=== PATIENT | male | born 1965 | race Caucasian/White ===

== ENCOUNTER 2016-11-16 11:44 | Inpatient (IN) | payer OTHER ==
[2016-11-16 13:57] VITALS: BMI 29.2
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
[2016-11-16] MEDS ORDERED: MENTHOL/PHENOL 1 EACH UD MM PRN (15:26)
[2016-11-16] MEDS ORDERED: IBUPROFEN 400 MG TABLET (FP) PO PRN (15:26)
[2016-11-16] MEDS ORDERED: hydrOXYzine PAMOATE 25 MG CAPSULE (FP) PO PRN (15:26)
[2016-11-16] MEDS ORDERED: MAGNESIUM CITRATE 300 ML BOTTLE PO PRN (15:26)
[2016-11-16] MEDS ORDERED: MAG HYDROX/AL HYDROX/SIMETH 30 ML UNIT-DOSE CUP PO PRN (15:26)
[2016-11-16] MEDS ORDERED: diphenhydrAMINE HCL 50 MG CAPSULE PO PRN (15:26)
[2016-11-16] MEDS ORDERED: LOPERAMIDE HCL 2 MG CAPSULE PO PRN (15:26)
[2016-11-16] MEDS ORDERED: P-EPHED 60MG/TRIPROLIDI 2.5MG TABLET PO PRN (15:26)
[2016-11-16] MEDS ORDERED: ACETAMINOPHEN 325 MG TABLET (FP) PO PRN (15:26)
[2016-11-16] MEDS ORDERED: MAGNESIUM HYDROX 2400MG/30ML ORAL SUSPENSION 30 ML CUP PO PRN (15:26)
[2016-11-16] MEDS ORDERED: NICOTINE POLACRILEX 2 MG GUM BC PRN (15:26)
[2016-11-16] MEDS ORDERED: guaiFENesin/D-METHORPHAN HB 10 ML UNIT-DOSE CUPS PO PRN (15:26)
[2016-11-16] MEDS ORDERED: chlordiazePOXIDE HCL 25 MG CAPSULE PO PRN (15:26)
[2016-11-16] MEDS ORDERED: METOPROLOL SUCCINATE 25 MG TAB.SR.24H (FP) PO SCH (18:30)
[2016-11-16] MEDS ORDERED: chlordiazePOXIDE HCL 25 MG CAPSULE PO ONE (18:30)
[2016-11-16] MEDS ORDERED: LISINOPRIL 20 MG TABLET (FP) PO SCH (18:30)
[2016-11-16] MEDS ORDERED: NICOTINE 14 MG/24 HOURS TOPICAL PATCH TD SCH (18:30)
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
[2016-11-16 19:00] VITALS: BP 122/79; PULSE 106; TEMP 98.8
[2016-11-16] MEDS ORDERED: ZOLPIDEM TARTRATE 5 MG TABLET PO PRN (19:51)
--- NOTE | 2016-11-16 20:46 | DS ---
[facility] Detox Discharge Summary Admission Date: 11/16/16 Discharge Date: 11/16/16 - History Present History: Alcohol Dependence, Cannabis Dependence, Cocaine Dependence Additional Comments: received nurse reports that the patient is enjoying showing his sex organ to female staff, provocative language. Pertinent Past History: TYPE II DIABETES HYPERTENSION HYPERLIPIDEMIA - Physical Exam Results Vital Signs: Vital Signs Temperature 98.8 F 11/16/16 18:59 Pulse Rate 106 H 11/16/16 18:59 Respiratory Rate 20 11/16/16 18:59 Blood Pressure 122/79 11/16/16 18:59 O2 Sat by Pulse Oximetry (%) Pertinent Admission Physical Exam Findings: WITHDRAWAL SX LAB NOT AVAILABLE - Medication Discharge Medications: Ambulatory Orders Lisinopril [Prinivil -] 20 mg PO DAILY 09/10/15 Metoprolol Tartrate [Lopressor -] 25 mg PO DAILY 09/10/15 Sertraline HCl [Zoloft -] 50 mg PO DAILY 09/27/15 Metformin HCl [Glucophage -] 500 mg PO BID #60 tablet 10/01/15 - Diagnosis (1) Alcohol dependence with uncomplicated withdrawal Status: Acute (2) Nicotine dependence Status: Acute Qualifiers: Nicotine product type: cigarettes Substance use status: in withdrawal Qualified Code(s): F17.213 - Nicotine dependence, cigarettes, with withdrawal (3) Essential (primary) hypertension Status: Chronic (4) Hyperlipidemia Status: Chronic Qualifiers: Hyperlipidemia type: unspecified Qualified Code(s): E78.5 - Hyperlipidemia, unspecified (5) Type 2 diabetes mellitus Status: Chronic Qualifiers: Diabetes mellitus complication status: without complication Diabetes mellitus fpc insulin use: without terminal carman use Qualified Code(s): E11.9 - Type 2 diabetes mellitus without complications - AMA Did Patient Leave Against Medical Advice: No
[2016-11-16] MEDS ORDERED: THIAMINE HCL 100 MG TABLET (FP) PO SCH (22:00)
[2016-11-16] MEDS ORDERED: chlordiazePOXIDE HCL 25 MG CAPSULE PO SCH (23:00)
[2016-11-17] MEDS ORDERED: metFORMIN HCL 500 MG TABLET (FP) PO SCH (07:00)
[2016-11-17] MEDS ORDERED: PRENATAL VITAMINS W/ FOLIC ACID TABLET (FP) PO SCH (10:00)
--- NOTE | 2016-11-17 12:50 | EKG ---
Test Reason : Blood Pressure : / mmHG Vent. Rate : 101 BPM Atrial Rate : 101 BPM P-R Int : 164 ms QRS Dur : 104 ms QT Int : 390 ms P-R-T Axes : 070 036 063 degrees QTc Int : 505 ms SINUS TACHYCARDIA SEPTAL INFARCT , AGE UNDETERMINED ABNORMAL ECG NO PREVIOUS ECGS AVAILABLE Confirmed by WIL SANCHEZ MD ([id number]) on 11/17/2016 12:50:13 PM Referred By: Confirmed By:WIL SANCHEZ MD
[2016-11-17] MEDS ORDERED: chlordiazePOXIDE HCL 25 MG CAPSULE PO SCH (23:00)
[2016-11-18] MEDS ORDERED: chlordiazePOXIDE 5 MG CAPSULE PO SCH (23:00)
[2016-11-19] MEDS ORDERED: chlordiazePOXIDE HCL 10 MG CAPSULE PO SCH (23:00)
== END 2016-11-16 20:48 | disposition home or self-care (01) | DRG 774 ==
LOC: YASAS 11:44 → Y3N 17:55
PROVIDERS: ADMIT Internal Medicine Addiction Medicine; ATTEND Internal Medicine Addiction Medicine
PROC: HZ2ZZZZ Detoxification Services for Substance Abuse Treatment (ICD-10-PCS; principal; 2016-11-16)
DX: F10.230 Alcohol dependence with withdrawal, uncomplicated (principal); F14.20 Cocaine dependence, uncomplicated; F12.20 Cannabis dependence, uncomplicated; F17.213 Nicotine dependence, cigarettes, with withdrawal; F19.24 Other psychoactive substance dependence with psychoactive substance-induced mood disorder; F39 Unspecified mood [affective] disorder; I10 Essential (primary) hypertension; E78.5 Hyperlipidemia, unspecified; E11.9 Type 2 diabetes mellitus without complications; D50.9 Iron deficiency anemia, unspecified; G47.00 Insomnia, unspecified; G62.9 Polyneuropathy, unspecified; F03.90 Unspecified dementia, unspecified severity, without behavioral disturbance, psychotic disturbance, mood disturbance, and anxiety; Z86.69 Personal history of other diseases of the nervous system and sense organs; Z91.5 Personal history of self-harm
CPT/HCPCS: 93005; 93010

== ENCOUNTER 2017-12-16 11:51 | Inpatient (IN) | payer OTHER ==
[2017-12-16 12:40] VITALS: BMI 26.6
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
[2017-12-16] MEDS ORDERED: MENTHOL/PHENOL 1 EACH UD MM PRN (15:46)
[2017-12-16] MEDS ORDERED: P-EPHED 60MG/TRIPROLIDI 2.5MG TABLET PO PRN (15:46)
[2017-12-16] MEDS ORDERED: LOPERAMIDE HCL 2 MG CAPSULE PO PRN (15:46)
[2017-12-16] MEDS ORDERED: IBUPROFEN 400 MG TABLET (FP) PO PRN (15:46)
[2017-12-16] MEDS ORDERED: ACETAMINOPHEN 325 MG TABLET (FP) PO PRN (15:46)
[2017-12-16] MEDS ORDERED: hydrOXYzine PAMOATE 50 MG CAPSULE (FP) PO PRN (15:46)
[2017-12-16] MEDS ORDERED: MAGNESIUM HYDROX 2400MG/30ML ORAL SUSPENSION 30 ML CUP PO PRN (15:46)
[2017-12-16] MEDS ORDERED: MAG HYDROX/AL HYDROX/SIMETH 30 ML UNIT-DOSE CUP PO PRN (15:46)
[2017-12-16] MEDS ORDERED: MAGNESIUM CITRATE 300 ML BOTTLE PO PRN (15:46)
[2017-12-16] MEDS ORDERED: guaiFENesin/D-METHORPHAN HB 10 ML UNIT-DOSE CUPS PO PRN (15:46)
[2017-12-16] MEDS ORDERED: chlordiazePOXIDE HCL 25 MG CAPSULE PO PRN (15:46)
[2017-12-16] MEDS ORDERED: chlordiazePOXIDE HCL 25 MG CAPSULE PO ONE (16:30)
[2017-12-16 17:41] LABS: URINE APPEARANCE CLEAR; URINE BILIRUBIN NEGATIVE (<2.0 mg/dL); URINE COLOR LTYELLOW; URINE GLUCOSE (UA) NEGATIVE (NEGATIVE); URINE KETONE NEGATIVE (NEGATIVE); URINE LEUK ESTERASE NEGATIVE (NEGATIVE); URINE NITRITE NEGATIVE (NEGATIVE); URINE PROTEIN NEGATIVE (NEGATIVE); URINE UROBILINOGEN NEGATIVE mg/dL (0.2-1.0)
[2017-12-16] MEDS: metFORMIN HCL 500 MG TABLET (FP) PO SCH (17:44)
[2017-12-16] MEDS: chlordiazePOXIDE HCL 25 MG CAPSULE PO SCH ×2 (17:44→23:31)
[2017-12-16] MEDS ORDERED: MELATONIN 5 MG TABLETS PO PRN (22:00)
[2017-12-16] MEDS: THIAMINE HCL 100 MG TABLET (FP) PO SCH (22:55)
[2017-12-17] MEDS: chlordiazePOXIDE HCL 25 MG CAPSULE PO SCH ×4 (06:54→22:39)
[2017-12-17] MEDS: metFORMIN HCL 500 MG TABLET (FP) PO SCH ×2 (06:55→17:26)
[2017-12-17 09:59] LABS: HEMOGLOBIN 11.3 GM/dL (11.7-16.9); MCH 29.6 pg (25.7-33.7); MCHC 34.2 g/dl (32.0-35.9); MEAN CELL VOLUME 86.6 fl (80-96); MEAN PLT VOLUME 7.5 fl (7.5-11.1); PLATELET COUNT 151 K/MM3 (134-434); RBC 3.81 M/mm3 (4.00-5.60); RDW 16.8 % (11.9-15.9); WHITE BLOOD COUNT 4.1 K/mm3 (4.0-10.0)
[2017-12-17 10:10] LABS: CHLORIDE 104 mmol/L (98-107); POTASSIUM 3.4 mmol/L (3.5-5.1); SODIUM 139 mmol/L (136-145)
[2017-12-17 10:32] LABS: ALBUMIN 3.4 g/dl (3.4-5.0); ALK PHOS 90 U/L (45-117); ANION GAP 10 (8-16); BILIRUBIN,TOTAL 0.4 mg/dL (0.2-1.0); BLOOD UREA NITROGEN 7 mg/dL (7-18); CALCIUM 8.4 mg/dL (8.5-10.1); CO2 25 mmol/L (21-32); CREATININE 0.8 mg/dL (0.7-1.3); GLUCOSE,RANDOM 98 mg/dL (74-106); SGOT/AST 36 U/L (15-37); SGPT/ALT 25 U/L (12-78); TOT PROT 7.2 g/dl (6.4-8.2)
[2017-12-17] MEDS: PRENATAL VITAMINS W/ FOLIC ACID TABLET (FP) PO SCH (11:34)
[2017-12-17] MEDS: LISINOPRIL 20 MG TABLET (FP) PO SCH (11:34)
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
--- NOTE | 2017-12-17 13:28 | PN ---
S CIWA - CIWA Score Nausea/Vomitin-Mild Nausea/No Vomiting Muscle Tremors: 4-Moderate,w/Arms Extend Anxiety: 4-Mod. Anxious/Guarded Agitation: 4-Moderately Restless Paroxysmal Sweats: 1-Minimal Palms Moist Orientation: 0-Oriented Tacttile Disturbances: 1-Very Mild Itch/Numbness Auditory Disturbances: 0-None Visual Disturbances: 0-None Headache: 0-None Present CIWA-Ar Total Score: 15 BHS Progress Note (SOAP) Subjective: sweat tremor low energy trouble sleep at night Objective: 12/17/17 13:26 Vital Signs Temperature 97.7 F 12/17/17 09:54 Pulse Rate 94 H 12/17/17 11:30 Respiratory Rate 18 12/17/17 11:30 Blood Pressure 158/103 12/17/17 09:54 O2 Sat by Pulse Oximetry (%) Laboratory Last Values WBC 4.1 K/mm3 (4.0-10.0) 12/17/17 07:50 RBC 3.81 M/mm3 (4.00-5.60) L 12/17/17 07:50 Hgb 11.3 GM/dL (11.7-16.9) L 12/17/17 07:50 Hct 33.0 % (35.4-49) L 12/17/17 07:50 MCV 86.6 fl (80-96) 12/17/17 07:50 MCH 29.6 pg (25.7-33.7) 12/17/17 07:50 MCHC 34.2 g/dl (32.0-35.9) 12/17/17 07:50 RDW 16.8 % (11.9-15.9) H 12/17/17 07:50 Plt Count 151 K/MM3 (134-434) 12/17/17 07:50 MPV 7.5 fl (7.5-11.1) 12/17/17 07:50 Sodium 139 mmol/L (136-145) 12/17/17 07:50 Potassium 3.4 mmol/L (3.5-5.1) L 12/17/17 07:50 Chloride 104 mmol/L (98-107) 12/17/17 07:50 Carbon Dioxide 25 mmol/L (21-32) 12/17/17 07:50 Anion Gap 10 (8-16) 12/17/17 07:50 BUN 7 mg/dL (7-18) 12/17/17 07:50 Creatinine 0.8 mg/dL (0.7-1.3) 12/17/17 07:50 Creat Clearance w eGFR > 60 (>60) 12/17/17 07:50 POC Glucometer 107 UNITS (80-120) 12/17/17 06:01 Random Glucose 98 mg/dL (74-106) 12/17/17 07:50 Calcium 8.4 mg/dL (8.5-10.1) L 12/17/17 07:50 Total Bilirubin 0.4 mg/dL (0.2-1.0) D 12/17/17 07:50 AST 36 U/L (15-37) D 12/17/17 07:50 ALT 25 U/L (12-78) D 12/17/17 07:50 Alkaline Phosphatase 90 U/L (45-117) D 12/17/17 07:50 Total Protein 7.2 g/dl (6.4-8.2) 12/17/17 07:50 Albumin 3.4 g/dl (3.4-5.0) 12/17/17 07:50 Urine Color Ltyellow 12/16/17 Unknown Urine Appearance Clear 12/16/17 Unknown Urine pH 5.0 (5.0-8.0) 12/16/17 Unknown Ur Specific [place] 1.010 (1.001-1.035) 12/16/17 Unknown Urine Protein Negative (NEGATIVE) 12/16/17 Unknown Urine Glucose (UA) Negative (NEGATIVE) 12/16/17 Unknown Urine Ketones Negative (NEGATIVE) 12/16/17 Unknown Urine Blood Negative (NEGATIVE) 12/16/17 Unknown Urine Nitrite Negative (NEGATIVE) 12/16/17 Unknown Urine Bilirubin Negative (<2.0 mg/dL) 12/16/17 Unknown Urine Urobilinogen Negative mg/dL (0.2-1.0) 12/16/17 Unknown Ur Leukocyte Esterase Negative (NEGATIVE) 12/16/17 Unknown RPR Titer Nonreactive (NONREACTIVE) 12/17/17 07:50 lab noted low K+ 12/17/17 13:26 Assessment: 12/17/17 13:26 withdrawal sx Plan: continue detox K+ supplement
[2017-12-17] MEDS: amLODIPine BESYLATE 5 MG TABLET (FP) PO SCH (13:51)
[2017-12-17] MEDS: THIAMINE HCL 100 MG TABLET (FP) PO SCH (22:39)
[2017-12-18] MEDS: chlordiazePOXIDE HCL 25 MG CAPSULE PO SCH ×2 (06:26→10:35)
[2017-12-18] MEDS: metFORMIN HCL 500 MG TABLET (FP) PO SCH ×2 (06:31→17:30)
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
[2017-12-18] MEDS: LISINOPRIL 20 MG TABLET (FP) PO SCH (10:35)
[2017-12-18] MEDS: amLODIPine BESYLATE 5 MG TABLET (FP) PO SCH (10:35)
[2017-12-18] MEDS: PRENATAL VITAMINS W/ FOLIC ACID TABLET (FP) PO SCH (10:35)
--- NOTE | 2017-12-18 10:57 | PN ---
S CIWA - CIWA Score Nausea/Vomitin Muscle Tremors: 3 Anxiety: 3 Agitation: 2 Paroxysmal Sweats: 1-Minimal Palms Moist Orientation: 0-Oriented Tacttile Disturbances: 1-Very Mild Itch/Numbness Auditory Disturbances: 1-Very Mild Visual Disturbances: 0-None Headache: 2-Mild CIWA-Ar Total Score: 16 BHS Progress Note (SOAP) Subjective: alert,irritable,anxious,interrupted sleep,tremor Objective: 12/18/17 10:57 Vital Signs Temperature 96.6 F L 12/18/17 09:18 Pulse Rate 108 H 12/18/17 09:18 Respiratory Rate 16 12/18/17 09:18 Blood Pressure 149/103 12/18/17 09:18 O2 Sat by Pulse Oximetry (%) 12/18/17 10:57 Laboratory Last Values WBC 4.1 K/mm3 (4.0-10.0) 12/17/17 07:50 RBC 3.81 M/mm3 (4.00-5.60) L 12/17/17 07:50 Hgb 11.3 GM/dL (11.7-16.9) L 12/17/17 07:50 Hct 33.0 % (35.4-49) L 12/17/17 07:50 MCV 86.6 fl (80-96) 12/17/17 07:50 MCH 29.6 pg (25.7-33.7) 12/17/17 07:50 MCHC 34.2 g/dl (32.0-35.9) 12/17/17 07:50 RDW 16.8 % (11.9-15.9) H 12/17/17 07:50 Plt Count 151 K/MM3 (134-434) 12/17/17 07:50 MPV 7.5 fl (7.5-11.1) 12/17/17 07:50 Sodium 139 mmol/L (136-145) 12/17/17 07:50 Potassium 3.4 mmol/L (3.5-5.1) L 12/17/17 07:50 Chloride 104 mmol/L (98-107) 12/17/17 07:50 Carbon Dioxide 25 mmol/L (21-32) 12/17/17 07:50 Anion Gap 10 (8-16) 12/17/17 07:50 BUN 7 mg/dL (7-18) 12/17/17 07:50 Creatinine 0.8 mg/dL (0.7-1.3) 12/17/17 07:50 Creat Clearance w eGFR > 60 (>60) 12/17/17 07:50 POC Glucometer 111 UNITS (80-120) 12/18/17 06:30 Random Glucose 98 mg/dL (74-106) 12/17/17 07:50 Calcium 8.4 mg/dL (8.5-10.1) L 12/17/17 07:50 Total Bilirubin 0.4 mg/dL (0.2-1.0) D 12/17/17 07:50 AST 36 U/L (15-37) D 12/17/17 07:50 ALT 25 U/L (12-78) D 12/17/17 07:50 Alkaline Phosphatase 90 U/L (45-117) D 12/17/17 07:50 Total Protein 7.2 g/dl (6.4-8.2) 12/17/17 07:50 Albumin 3.4 g/dl (3.4-5.0) 12/17/17 07:50 Urine Color Ltyellow 12/16/17 Unknown Urine Appearance Clear 12/16/17 Unknown Urine pH 5.0 (5.0-8.0) 12/16/17 Unknown Ur Specific [place] 1.010 (1.001-1.035) 12/16/17 Unknown Urine Protein Negative (NEGATIVE) 12/16/17 Unknown Urine Glucose (UA) Negative (NEGATIVE) 12/16/17 Unknown Urine Ketones Negative (NEGATIVE) 12/16/17 Unknown Urine Blood Negative (NEGATIVE) 12/16/17 Unknown Urine Nitrite Negative (NEGATIVE) 12/16/17 Unknown Urine Bilirubin Negative (<2.0 mg/dL) 12/16/17 Unknown Urine Urobilinogen Negative mg/dL (0.2-1.0) 12/16/17 Unknown Ur Leukocyte Esterase Negative (NEGATIVE) 12/16/17 Unknown RPR Titer Nonreactive (NONREACTIVE) 12/17/17 07:50 Assessment: 12/18/17 10:57 withdrawal symptom Plan: continue detox
[2017-12-18] MEDS: chlordiazePOXIDE 5 MG CAPSULE PO SCH ×2 (17:30→22:33)
[2017-12-18] MEDS: THIAMINE HCL 100 MG TABLET (FP) PO SCH (22:32)
[2017-12-19] MEDS: chlordiazePOXIDE 5 MG CAPSULE PO SCH ×2 (05:33→11:02)
[2017-12-19] MEDS: metFORMIN HCL 500 MG TABLET (FP) PO SCH ×2 (06:59→17:29)
[2017-12-19] MEDS: LISINOPRIL 20 MG TABLET (FP) PO SCH (11:01)
[2017-12-19] MEDS: PRENATAL VITAMINS W/ FOLIC ACID TABLET (FP) PO SCH (11:01)
[2017-12-19] MEDS: amLODIPine BESYLATE 5 MG TABLET (FP) PO SCH (11:01)
--- NOTE | 2017-12-19 12:23 | PN ---
S Progress Note (SOAP) Subjective: alert,irritable,interrupted sleep Objective: 12/19/17 12:21 Vital Signs Temperature 97.7 F 12/19/17 06:00 Pulse Rate 89 12/19/17 09:26 Respiratory Rate 18 12/19/17 09:26 Blood Pressure 149/91 12/19/17 09:26 O2 Sat by Pulse Oximetry (%) Assessment: 12/19/17 12:21 withdrawal symptom Plan: continue detox,discharge in am
[2017-12-19] MEDS: chlordiazePOXIDE HCL 10 MG CAPSULE PO SCH ×2 (17:29→22:29)
[2017-12-19] MEDS: THIAMINE HCL 100 MG TABLET (FP) PO SCH (22:29)
[2017-12-20] MEDS: chlordiazePOXIDE HCL 10 MG CAPSULE PO SCH (05:28)
[2017-12-20 06:24] VITALS: BP 145/89; PULSE 95; TEMP 98.1
[2017-12-20] MEDS: metFORMIN HCL 500 MG TABLET (FP) PO SCH (06:59)
--- NOTE | 2017-12-20 09:02 | PN ---
BHS Progress Note (SOAP) Subjective: I'm feeling better. Objective: 12/20/17 09:00 Vital Signs Temperature 98.1 F 12/20/17 06:00 Pulse Rate 95 H 12/20/17 06:00 Respiratory Rate 18 12/20/17 06:00 Blood Pressure 145/89 12/20/17 06:00 O2 Sat by Pulse Oximetry (%) Laboratory Tests 12/16/17 12/16/17 12/17/17 14:31 Unknown 06:01 WBC RBC Hgb Hct MCV MCH MCHC RDW Plt Count MPV Sodium Potassium Chloride Carbon Dioxide Anion Gap BUN Creatinine Creat Clearance w eGFR POC Glucometer 191 107 Random Glucose Calcium Total Bilirubin AST ALT Alkaline Phosphatase Total Protein Albumin Urine Color Ltyellow Urine Appearance Clear Urine pH 5.0 Ur Specific [place] 1.010 Urine Protein Negative Urine Glucose (UA) Negative Urine Ketones Negative Urine Blood Negative Urine Nitrite Negative Urine Bilirubin Negative Urine Urobilinogen Negative Ur Leukocyte Esterase Negative RPR Titer 12/17/17 12/17/17 12/17/17 07:50 07:50 07:50 WBC 4.1 RBC 3.81 L Hgb 11.3 L Hct 33.0 L MCV 86.6 MCH 29.6 MCHC 34.2 RDW 16.8 H Plt Count 151 MPV 7.5 Sodium 139 Potassium 3.4 L Chloride 104 Carbon Dioxide 25 Anion Gap 10 BUN 7 Creatinine 0.8 Creat Clearance w eGFR > 60 POC Glucometer Random Glucose 98 Calcium 8.4 L Total Bilirubin 0.4 D AST 36 D ALT 25 D Alkaline Phosphatase 90 D Total Protein 7.2 Albumin 3.4 Urine Color Urine Appearance Urine pH Ur Specific [place] Urine Protein Urine Glucose (UA) Urine Ketones Urine Blood Urine Nitrite Urine Bilirubin Urine Urobilinogen Ur Leukocyte Esterase RPR Titer Nonreactive 12/17/17 12/18/17 12/18/17 16:35 06:30 16:32 WBC RBC Hgb Hct MCV MCH MCHC RDW Plt Count MPV Sodium Potassium Chloride Carbon Dioxide Anion Gap BUN Creatinine Creat Clearance w eGFR POC Glucometer 119 111 119 Random Glucose Calcium Total Bilirubin AST ALT Alkaline Phosphatase Total Protein Albumin Urine Color Urine Appearance Urine pH Ur Specific [place] Urine Protein Urine Glucose (UA) Urine Ketones Urine Blood Urine Nitrite Urine Bilirubin Urine Urobilinogen Ur Leukocyte Esterase RPR Titer 12/19/17 12/19/17 12/19/17 05:33 07:20 16:26 WBC RBC Hgb Hct MCV MCH MCHC RDW Plt Count MPV Sodium Potassium 3.6 Chloride Carbon Dioxide Anion Gap BUN Creatinine Creat Clearance w eGFR POC Glucometer 117 151 Random Glucose Calcium Total Bilirubin AST ALT Alkaline Phosphatase Total Protein Albumin Urine Color Urine Appearance Urine pH Ur Specific [place] Urine Protein Urine Glucose (UA) Urine Ketones Urine Blood Urine Nitrite Urine Bilirubin Urine Urobilinogen Ur Leukocyte Esterase RPR Titer 12/20/17 05:24 WBC RBC Hgb Hct MCV MCH MCHC RDW Plt Count MPV Sodium Potassium Chloride Carbon Dioxide Anion Gap BUN Creatinine Creat Clearance w eGFR POC Glucometer 135 Random Glucose Calcium Total Bilirubin AST ALT Alkaline Phosphatase Total Protein Albumin Urine Color Urine Appearance Urine pH Ur Specific [place] Urine Protein Urine Glucose (UA) Urine Ketones Urine Blood Urine Nitrite Urine Bilirubin Urine Urobilinogen Ur Leukocyte Esterase RPR Titer pt aox3 in nad , lying in bed , cooperative no tremor Assessment: 12/20/17 09:01 withdrawal sx's improved Plan: d/c pt today send to rehab
--- NOTE | 2017-12-20 09:05 | DS ---
[facility] Detox Discharge Summary Admission Date: 12/16/17 Discharge Date: 12/20/17 - History Present History: Alcohol Dependence, Cannabis Dependence, Cocaine Dependence - Physical Exam Results Vital Signs: Vital Signs Temperature 98.1 F 12/20/17 06:00 Pulse Rate 95 H 12/20/17 06:00 Respiratory Rate 18 12/20/17 06:00 Blood Pressure 145/89 12/20/17 06:00 O2 Sat by Pulse Oximetry (%) - Treatment Hospital Course: Detox Protocol Followed, Detoxed Safely, Responded well, Discharged Condition Good - Medication Discharge Medications: Ambulatory Orders Lisinopril [Prinivil -] 20 mg PO DAILY 09/10/15 metFORMIN HCL [Glucophage -] 500 mg PO BID #60 tablet 10/01/15 - Diagnosis (1) Neuropathy Current Visit: Yes Status: Chronic (2) Alcohol dependence with uncomplicated withdrawal Current Visit: No Status: Chronic (3) Cannabis dependence Current Visit: No Status: Acute (4) Cocaine dependence Current Visit: No Status: Chronic (5) Insomnia Current Visit: No Status: Chronic (6) MDD (major depressive disorder), recurrent episode, moderate Current Visit: No Status: Chronic (7) Nicotine dependence Current Visit: No Status: Chronic Qualifiers: Nicotine product type: cigarettes Substance use status: in withdrawal Qualified Code(s): F17.213 - Nicotine dependence, cigarettes, with withdrawal (8) Essential (primary) hypertension Current Visit: No Status: Chronic (9) Hyperlipidemia Current Visit: No Status: Chronic Qualifiers: Hyperlipidemia type: unspecified Qualified Code(s): E78.5 - Hyperlipidemia , unspecified (10) Type 2 diabetes mellitus Current Visit: No Status: Chronic Qualifiers: Diabetes mellitus senior living insulin use: without remote computer terminal operator use Diabetes mellitus complication status: without complication Qualified Code(s): E11.9 - Type 2 diabetes mellitus without complications - AMA Did Patient Leave Against Medical Advice: No
== END 2017-12-20 09:31 | disposition home or self-care (01) | DRG 774 ==
LOC: YASAS 11:51 → Y6N 15:09
PROVIDERS: ADMIT Surgery; ATTEND Surgery
PROC: HZ2ZZZZ Detoxification Services for Substance Abuse Treatment (ICD-10-PCS; principal; 2017-12-16)
DX: F10.230 Alcohol dependence with withdrawal, uncomplicated (principal); F14.20 Cocaine dependence, uncomplicated; F12.20 Cannabis dependence, uncomplicated; F17.213 Nicotine dependence, cigarettes, with withdrawal; F33.2 Major depressive disorder, recurrent severe without psychotic features; F41.8 Other specified anxiety disorders; F19.24 Other psychoactive substance dependence with psychoactive substance-induced mood disorder; I10 Essential (primary) hypertension; G62.9 Polyneuropathy, unspecified; G47.00 Insomnia, unspecified; E87.5 Hyperkalemia; E11.9 Type 2 diabetes mellitus without complications; D64.9 Anemia, unspecified; Z86.79 Personal history of other diseases of the circulatory system; Z86.69 Personal history of other diseases of the nervous system and sense organs; Z79.84 Long term (current) use of oral hypoglycemic drugs; Z88.6 Allergy status to analgesic agent; Z91.5 Personal history of self-harm
CPT/HCPCS: 36415; 80053; 81003; 82962; 84132; 85027; 86593; 93005; 93010

== ENCOUNTER 2018-06-29 10:16 | Inpatient (IN) | payer OTHER ==
[2018-06-29 10:33] VITALS: BMI 27.8
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
[2018-06-29] MEDS ORDERED: guaiFENesin/D-METHORPHAN HB 10 ML UNIT-DOSE CUPS PO PRN (11:34)
[2018-06-29] MEDS ORDERED: MAG HYDROX/AL HYDROX/SIMETH 30 ML UNIT-DOSE CUP PO PRN (11:34)
[2018-06-29] MEDS ORDERED: P-EPHED 60MG/TRIPROLIDI 2.5MG TABLET PO PRN (11:34)
[2018-06-29] MEDS ORDERED: MENTHOL/PHENOL 1 EACH UD MM PRN (11:34)
[2018-06-29] MEDS ORDERED: ACETAMINOPHEN 325 MG TABLET (FP) PO PRN (11:34)
[2018-06-29] MEDS ORDERED: IBUPROFEN 400 MG TABLET (FP) PO PRN (11:34)
[2018-06-29] MEDS ORDERED: MAGNESIUM CITRATE 300 ML BOTTLE PO PRN (11:34)
[2018-06-29] MEDS ORDERED: chlordiazePOXIDE HCL 25 MG CAPSULE PO PRN (11:34)
[2018-06-29] MEDS ORDERED: MAGNESIUM HYDROX 2400MG/30ML ORAL SUSPENSION 30 ML CUP PO PRN (11:34)
[2018-06-29] MEDS: chlordiazePOXIDE HCL 25 MG CAPSULE PO SCH ×2 (17:04→22:00)
[2018-06-29] MEDS: INSULIN SLIDING SCALE (NOVOLOG) 1 VIAL SQ SCH (21:47)
[2018-06-29] MEDS: THIAMINE HCL 100 MG TABLET (FP) PO SCH (21:49)
[2018-06-29] MEDS ORDERED: MELATONIN 5 MG TABLETS PO PRN (22:00)
[2018-06-30] MEDS: chlordiazePOXIDE HCL 25 MG CAPSULE PO SCH ×4 (06:01→22:08)
[2018-06-30] MEDS: metFORMIN HCL 500 MG TABLET (FP) PO SCH ×2 (06:02→17:23)
[2018-06-30] MEDS: INSULIN SLIDING SCALE (NOVOLOG) 1 VIAL SQ SCH ×4 (06:03→22:09)
[2018-06-30] MEDS: amLODIPine BESYLATE 5 MG TABLET (FP) PO SCH (10:29)
[2018-06-30] MEDS: PRENATAL VITAMINS W/ FOLIC ACID TABLET (FP) PO SCH (10:29)
[2018-06-30 11:28] LABS: HEMATOCRIT 34.1 % (35.4-49); MCHC 32.4 g/dl (32.0-35.9); MEAN CELL VOLUME 86.5 fl (80-96); MEAN PLT VOLUME 9.2 fl (7.5-11.1); PLATELET COUNT 128 K/MM3 (134-434); RBC 3.94 M/mm3 (4.00-5.60); RDW 17.5 % (11.9-15.9); WHITE BLOOD COUNT 4.5 K/mm3 (4.0-10.0)
[2018-06-30 11:43] LABS: ALBUMIN 3.4 g/dl (3.4-5.0); ALK PHOS 130 U/L (45-117); ANION GAP 10 MMOL/L (8-16); BILIRUBIN,TOTAL 0.5 mg/dL (0.2-1); BLOOD UREA NITROGEN 7 mg/dL (7-18); CALCIUM 8.8 mg/dL (8.5-10.1); CHLORIDE 102 mmol/L (98-107); CO2 24 mmol/L (21-32); CREATININE 0.9 mg/dL (0.55-1.3); GLUCOSE,RANDOM 91 mg/dL (74-106); POTASSIUM 3.6 mmol/L (3.5-5.1); SGOT/AST 109 U/L (15-37); SGPT/ALT 60 U/L (13-61); SODIUM 137 mmol/L (136-145); TOT PROT 7.2 g/dl (6.4-8.2)
--- NOTE | 2018-06-30 12:09 | PN ---
S CIWA - CIWA Score Nausea/Vomitin Muscle Tremors: 2 Anxiety: 2 Agitation: 2 Paroxysmal Sweats: 1-Minimal Palms Moist Orientation: 0-Oriented Tacttile Disturbances: 1-Very Mild Itch/Numbness Auditory Disturbances: 1-Very Mild Visual Disturbances: 0-None Headache: 2-Mild CIWA-Ar Total Score: 13 BHS Progress Note (SOAP) Subjective: alert,irritable,anxious,interrupted sleep,tremor Objective: 06/30/18 12:07 Vital Signs Temperature 97.7 F 06/30/18 09:22 Pulse Rate 57 L 06/30/18 09:22 Respiratory Rate 16 06/30/18 09:22 Blood Pressure 142/90 06/30/18 09:22 O2 Sat by Pulse Oximetry (%) 06/30/18 12:07 Laboratory Last Values WBC 4.5 K/mm3 (4.0-10.0) 06/30/18 07:30 RBC 3.94 M/mm3 (4.00-5.60) L 06/30/18 07:30 Hgb 11.0 GM/dL (11.7-16.9) L 06/30/18 07:30 Hct 34.1 % (35.4-49) L 06/30/18 07:30 MCV 86.5 fl (80-96) 06/30/18 07:30 MCH 28.0 pg (25.7-33.7) 06/30/18 07:30 MCHC 32.4 g/dl (32.0-35.9) 06/30/18 07:30 RDW 17.5 % (11.9-15.9) H 06/30/18 07:30 Plt Count 128 K/MM3 (134-434) L 06/30/18 07:30 MPV 9.2 fl (7.5-11.1) D 06/30/18 07:30 Sodium 137 mmol/L (136-145) 06/30/18 07:30 Potassium 3.6 mmol/L (3.5-5.1) 06/30/18 07:30 Chloride 102 mmol/L (98-107) 06/30/18 07:30 Carbon Dioxide 24 mmol/L (21-32) 06/30/18 07:30 Anion Gap 10 MMOL/L (8-16) 06/30/18 07:30 BUN 7 mg/dL (7-18) 06/30/18 07:30 Creatinine 0.9 mg/dL (0.55-1.3) 06/30/18 07:30 Creat Clearance w eGFR > 60 (>60) 06/30/18 07:30 POC Glucometer 114 UNITS (80-120) 06/30/18 06:00 Random Glucose 91 mg/dL (74-106) 06/30/18 07:30 Calcium 8.8 mg/dL (8.5-10.1) 06/30/18 07:30 Total Bilirubin 0.5 mg/dL (0.2-1) 06/30/18 07:30 AST 109 U/L (15-37) H 06/30/18 07:30 ALT 60 U/L (13-61) 06/30/18 07:30 Alkaline Phosphatase 130 U/L (45-117) H 06/30/18 07:30 Total Protein 7.2 g/dl (6.4-8.2) 06/30/18 07:30 Albumin 3.4 g/dl (3.4-5.0) 06/30/18 07:30 Assessment: 06/30/18 12:08 withdrawal symptom Plan: continue detox,d/c tylenol for elevation of alt,ast
[2018-06-30] MEDS: THIAMINE HCL 100 MG TABLET (FP) PO SCH (22:08)
[2018-07-01] MEDS: chlordiazePOXIDE HCL 25 MG CAPSULE PO SCH ×2 (05:50→10:25)
[2018-07-01] MEDS: metFORMIN HCL 500 MG TABLET (FP) PO SCH ×2 (06:03→17:12)
[2018-07-01] MEDS: INSULIN SLIDING SCALE (NOVOLOG) 1 VIAL SQ SCH ×4 (06:58→22:05)
[2018-07-01] MEDS: PRENATAL VITAMINS W/ FOLIC ACID TABLET (FP) PO SCH (10:25)
[2018-07-01] MEDS: amLODIPine BESYLATE 5 MG TABLET (FP) PO SCH (10:25)
--- NOTE | 2018-07-01 15:26 | PN ---
S CIWA - CIWA Score Nausea/Vomitin-Mild Nausea/No Vomiting Muscle Tremors: 3 Anxiety: 3 Agitation: 3 Paroxysmal Sweats: 2 Orientation: 0-Oriented Tacttile Disturbances: 1-Very Mild Itch/Numbness Auditory Disturbances: 0-None Visual Disturbances: 0-None Headache: 0-None Present CIWA-Ar Total Score: 13 BHS Progress Note (SOAP) Subjective: Headache (7/10), interrupted sleep Objective: 07/01/18 15:24 Last Vital Signs Temp Pulse Resp BP Pulse Ox 98.1 F 74 18 136/86 07/01/18 13:42 07/01/18 13:42 07/01/18 13:42 07/01/18 13:42 Laboratory Tests 06/29/18 06/29/18 06/30/18 11:15 21:28 06:00 WBC RBC Hgb Hct MCV MCH MCHC RDW Plt Count MPV Sodium Potassium Chloride Carbon Dioxide Anion Gap BUN Creatinine Creat Clearance w eGFR POC Glucometer 108 122 114 Random Glucose Calcium Total Bilirubin AST ALT Alkaline Phosphatase Total Protein Albumin RPR Titer 06/30/18 06/30/18 06/30/18 07:30 07:30 07:30 WBC 4.5 RBC 3.94 L Hgb 11.0 L Hct 34.1 L MCV 86.5 MCH 28.0 MCHC 32.4 RDW 17.5 H Plt Count 128 L MPV 9.2 D Sodium 137 Potassium 3.6 Chloride 102 Carbon Dioxide 24 Anion Gap 10 BUN 7 Creatinine 0.9 Creat Clearance w eGFR > 60 POC Glucometer Random Glucose 91 Calcium 8.8 Total Bilirubin 0.5 AST 109 H ALT 60 Alkaline Phosphatase 130 H Total Protein 7.2 Albumin 3.4 RPR Titer Nonreactive 06/30/18 06/30/18 07/01/18 11:52 16:39 05:50 WBC RBC Hgb Hct MCV MCH MCHC RDW Plt Count MPV Sodium Potassium Chloride Carbon Dioxide Anion Gap BUN Creatinine Creat Clearance w eGFR POC Glucometer 132 105 101 Random Glucose Calcium Total Bilirubin AST ALT Alkaline Phosphatase Total Protein Albumin RPR Titer 07/01/18 11:51 WBC RBC Hgb Hct MCV MCH MCHC RDW Plt Count MPV Sodium Potassium Chloride Carbon Dioxide Anion Gap BUN Creatinine Creat Clearance w eGFR POC Glucometer 121 Random Glucose Calcium Total Bilirubin AST ALT Alkaline Phosphatase Total Protein Albumin RPR Titer Labs reviewed Assessment: 07/01/18 15:25 Withdrawal symptoms Plan: Continue detox Encouraged PO water intake
[2018-07-01] MEDS: chlordiazePOXIDE 5 MG CAPSULE PO SCH ×2 (17:12→22:05)
[2018-07-01] MEDS: THIAMINE HCL 100 MG TABLET (FP) PO SCH (22:05)
[2018-07-02] MEDS: chlordiazePOXIDE 5 MG CAPSULE PO SCH ×2 (05:53→10:17)
[2018-07-02] MEDS: metFORMIN HCL 500 MG TABLET (FP) PO SCH ×2 (07:24→17:21)
[2018-07-02] MEDS: INSULIN SLIDING SCALE (NOVOLOG) 1 VIAL SQ SCH ×4 (07:26→22:12)
[2018-07-02] MEDS: amLODIPine BESYLATE 5 MG TABLET (FP) PO SCH (10:17)
[2018-07-02] MEDS: PRENATAL VITAMINS W/ FOLIC ACID TABLET (FP) PO SCH (10:18)
--- NOTE | 2018-07-02 16:53 | PN ---
BHS Progress Note (SOAP) Subjective: heartburn sweats tremors Assessment: 07/02/18 16:53 In bed A & O x 3 Vital Signs Temperature 97 F L 07/02/18 09:13 Pulse Rate 70 07/02/18 09:13 Respiratory Rate 20 07/02/18 09:13 Blood Pressure 142/83 07/02/18 09:13 O2 Sat by Pulse Oximetry (%) Plan: withdrawal symptoms continue detox
[2018-07-02] MEDS: chlordiazePOXIDE HCL 10 MG CAPSULE PO SCH ×2 (17:21→22:11)
[2018-07-02] MEDS: THIAMINE HCL 100 MG TABLET (FP) PO SCH (22:11)
[2018-07-03] MEDS: chlordiazePOXIDE HCL 10 MG CAPSULE PO SCH ×2 (05:59→10:30)
[2018-07-03] MEDS: metFORMIN HCL 500 MG TABLET (FP) PO SCH ×2 (06:00→17:02)
[2018-07-03] MEDS: INSULIN SLIDING SCALE (NOVOLOG) 1 VIAL SQ SCH ×4 (06:47→22:10)
[2018-07-03] MEDS: PRENATAL VITAMINS W/ FOLIC ACID TABLET (FP) PO SCH (10:29)
[2018-07-03] MEDS: amLODIPine BESYLATE 5 MG TABLET (FP) PO SCH (10:29)
--- NOTE | 2018-07-03 13:59 | PN ---
S Progress Note (SOAP) Subjective: Interrupted sleep Objective: 07/03/18 13:58 Last Vital Signs Temp Pulse Resp BP Pulse Ox 96.7 F L 77 18 138/92 07/03/18 09:14 07/03/18 09:14 07/03/18 09:14 07/03/18 09:14 Laboratory Tests 06/29/18 06/29/18 06/30/18 11:15 21:28 06:00 WBC RBC Hgb Hct MCV MCH MCHC RDW Plt Count MPV Sodium Potassium Chloride Carbon Dioxide Anion Gap BUN Creatinine Creat Clearance w eGFR POC Glucometer 108 122 114 Random Glucose Calcium Total Bilirubin AST ALT Alkaline Phosphatase Total Protein Albumin RPR Titer 06/30/18 06/30/18 06/30/18 07:30 07:30 07:30 WBC 4.5 RBC 3.94 L Hgb 11.0 L Hct 34.1 L MCV 86.5 MCH 28.0 MCHC 32.4 RDW 17.5 H Plt Count 128 L MPV 9.2 D Sodium 137 Potassium 3.6 Chloride 102 Carbon Dioxide 24 Anion Gap 10 BUN 7 Creatinine 0.9 Creat Clearance w eGFR > 60 POC Glucometer Random Glucose 91 Calcium 8.8 Total Bilirubin 0.5 AST 109 H ALT 60 Alkaline Phosphatase 130 H Total Protein 7.2 Albumin 3.4 RPR Titer Nonreactive 06/30/18 06/30/18 07/01/18 11:52 16:39 05:50 WBC RBC Hgb Hct MCV MCH MCHC RDW Plt Count MPV Sodium Potassium Chloride Carbon Dioxide Anion Gap BUN Creatinine Creat Clearance w eGFR POC Glucometer 132 105 101 Random Glucose Calcium Total Bilirubin AST ALT Alkaline Phosphatase Total Protein Albumin RPR Titer 07/01/18 07/01/18 07/02/18 11:51 16:18 05:53 WBC RBC Hgb Hct MCV MCH MCHC RDW Plt Count MPV Sodium Potassium Chloride Carbon Dioxide Anion Gap BUN Creatinine Creat Clearance w eGFR POC Glucometer 121 120 115 Random Glucose Calcium Total Bilirubin AST ALT Alkaline Phosphatase Total Protein Albumin RPR Titer 07/02/18 07/02/18 07/03/18 11:35 16:54 05:58 WBC RBC Hgb Hct MCV MCH MCHC RDW Plt Count MPV Sodium Potassium Chloride Carbon Dioxide Anion Gap BUN Creatinine Creat Clearance w eGFR POC Glucometer 116 116 132 Random Glucose Calcium Total Bilirubin AST ALT Alkaline Phosphatase Total Protein Albumin RPR Titer Labs reviewed Assessment: 07/03/18 13:58 Withdrawal symptoms Plan: Continue detox Encouraged PO water intake
[2018-07-03] MEDS: THIAMINE HCL 100 MG TABLET (FP) PO SCH (22:09)
[2018-07-04 06:31] VITALS: BP 128/84; PULSE 71; TEMP 97
[2018-07-04] MEDS: metFORMIN HCL 500 MG TABLET (FP) PO SCH (06:35)
[2018-07-04] MEDS: INSULIN SLIDING SCALE (NOVOLOG) 1 VIAL SQ SCH (07:15)
--- NOTE | 2018-07-04 16:48 | DS ---
[facility] Detox Discharge Summary Admission Date: 06/29/18 Discharge Date: 07/04/18 - History Present History: Alcohol Dependence Additional Comments: PATIENT REFERRED TO [facility] ([place], [place]) FOR AFTERCARE. PATIENT WAS DISCHARGED FROM DETOX UNIT IN STABLE MEDICAL CONDITION. Pertinent Past History: History of Anemia, History of Depression, NIDDM, History of Seizures. - Physical Exam Results Vital Signs: Vital Signs Temperature 97.0 F L 07/04/18 06:30 Pulse Rate 71 07/04/18 06:30 Respiratory Rate 18 07/04/18 06:30 Blood Pressure 128/84 07/04/18 06:30 O2 Sat by Pulse Oximetry (%) Pertinent Admission Physical Exam Findings: WITHDRAWAL SYMPTOMS. Laboratory Tests 06/29/18 06/29/18 06/30/18 11:15 21:28 06:00 WBC RBC Hgb Hct MCV MCH MCHC RDW Plt Count MPV Sodium Potassium Chloride Carbon Dioxide Anion Gap BUN Creatinine Creat Clearance w eGFR POC Glucometer 108 122 114 Random Glucose Calcium Total Bilirubin AST ALT Alkaline Phosphatase Total Protein Albumin RPR Titer 06/30/18 06/30/18 06/30/18 07:30 07:30 07:30 WBC 4.5 RBC 3.94 L Hgb 11.0 L Hct 34.1 L MCV 86.5 MCH 28.0 MCHC 32.4 RDW 17.5 H Plt Count 128 L MPV 9.2 D Sodium 137 Potassium 3.6 Chloride 102 Carbon Dioxide 24 Anion Gap 10 BUN 7 Creatinine 0.9 Creat Clearance w eGFR > 60 POC Glucometer Random Glucose 91 Calcium 8.8 Total Bilirubin 0.5 AST 109 H ALT 60 Alkaline Phosphatase 130 H Total Protein 7.2 Albumin 3.4 RPR Titer Nonreactive 06/30/18 06/30/18 07/01/18 11:52 16:39 05:50 WBC RBC Hgb Hct MCV MCH MCHC RDW Plt Count MPV Sodium Potassium Chloride Carbon Dioxide Anion Gap BUN Creatinine Creat Clearance w eGFR POC Glucometer 132 105 101 Random Glucose Calcium Total Bilirubin AST ALT Alkaline Phosphatase Total Protein Albumin RPR Titer 07/01/18 07/01/18 07/02/18 11:51 16:18 05:53 WBC RBC Hgb Hct MCV MCH MCHC RDW Plt Count MPV Sodium Potassium Chloride Carbon Dioxide Anion Gap BUN Creatinine Creat Clearance w eGFR POC Glucometer 121 120 115 Random Glucose Calcium Total Bilirubin AST ALT Alkaline Phosphatase Total Protein Albumin RPR Titer 07/02/18 07/02/18 07/03/18 11:35 16:54 05:58 WBC RBC Hgb Hct MCV MCH MCHC RDW Plt Count MPV Sodium Potassium Chloride Carbon Dioxide Anion Gap BUN Creatinine Creat Clearance w eGFR POC Glucometer 116 116 132 Random Glucose Calcium Total Bilirubin AST ALT Alkaline Phosphatase Total Protein Albumin RPR Titer 07/04/18 05:40 WBC RBC Hgb Hct MCV MCH MCHC RDW Plt Count MPV Sodium Potassium Chloride Carbon Dioxide Anion Gap BUN Creatinine Creat Clearance w eGFR POC Glucometer 132 Random Glucose Calcium Total Bilirubin AST ALT Alkaline Phosphatase Total Protein Albumin RPR Titer LABS NOTED. - Treatment Hospital Course: Detox Protocol Followed, Detoxed Safely, Responded well, Discharged Condition Good Patient has Accepted a Rehab Referral to: PT. REFERRED TO [facility] ([place] FOR [facility]. - Medication Discharge Medications: Ambulatory Orders Lisinopril [Prinivil -] 20 mg PO DAILY 09/10/15 metFORMIN HCL [Glucophage -] 500 mg PO BID #60 tablet 10/01/15 Amlodipine Besylate [Norvasc -] 5 mg PO DAILY #30 tablet 12/20/17 - Diagnosis (1) Alcohol dependence with uncomplicated withdrawal Status: Acute - AMA Did Patient Leave Against Medical Advice: No
== END 2018-07-04 09:05 | disposition home or self-care (01) | DRG 775 ==
LOC: YASAS 10:16 → Y3N 12:04
PROC: HZ2ZZZZ Detoxification Services for Substance Abuse Treatment (ICD-10-PCS; principal; 2018-06-29)
DX: F10.230 Alcohol dependence with withdrawal, uncomplicated (principal); F10.282 Alcohol dependence with alcohol-induced sleep disorder; F12.20 Cannabis dependence, uncomplicated; F17.213 Nicotine dependence, cigarettes, with withdrawal; F41.8 Other specified anxiety disorders; I10 Essential (primary) hypertension; G62.9 Polyneuropathy, unspecified; E11.9 Type 2 diabetes mellitus without complications; E78.5 Hyperlipidemia, unspecified; G47.00 Insomnia, unspecified; Z86.69 Personal history of other diseases of the nervous system and sense organs; Z88.6 Allergy status to analgesic agent
CPT/HCPCS: 36415; 80053; 82962; 85027; 86593

== ENCOUNTER 2020-08-22 15:22 | Emergency (ER) | payer OTHER ==
[2020-08-22 15:55] VITALS: BMI 30.7
[2020-08-22 16:58] LABS: BASO % 0.6 % (0-2.0); EOS % 2.7 % (0-4.5); HEMATOCRIT 31.9 % (35.4-49); HEMOGLOBIN 10.9 GM/dL (11.7-16.9); LYMPH % 23.5 % (8-40); MCH 28.9 pg (25.7-33.7); MCHC 34.2 g/dl (32.0-35.9); MEAN CELL VOLUME 84.5 fl (80-96); MEAN PLT VOLUME 7.7 fl (7.5-11.1); MONO % 7.8 % (3.8-10.2); NEUT % 65.4 % (42.8-82.8); PLATELET COUNT 107 K/MM3 (134-434); RBC 3.78 M/mm3 (4.00-5.60); RDW 16.5 % (11.9-15.9); WHITE BLOOD COUNT 4.2 K/mm3 (4.0-10.0)
[2020-08-22 17:22] LABS: CHLORIDE 110 mmol/L (98-107); POTASSIUM 3.4 mmol/L (3.5-5.1); SODIUM 143 mmol/L (136-145)
[2020-08-22 17:26] LABS: CALCIUM 7.9 mg/dL (8.5-10.1)
[2020-08-22 17:27] LABS: ALBUMIN 3.4 g/dl (3.4-5.0); ANION GAP 7 MMOL/L (8-16); BLOOD UREA NITROGEN 6.6 mg/dL (7-18); CO2 26 mmol/L (21-32); GLUCOSE,RANDOM 118 mg/dL (74-106)
[2020-08-22 17:30] LABS: CREATININE 0.8 mg/dL (0.55-1.3); SGOT/AST 36 U/L (15-37); SGPT/ALT 33 U/L (13-61)
[2020-08-22 17:31] LABS: BILIRUBIN,TOTAL 0.4 mg/dL (0.2-1); TOT PROT 6.7 g/dl (6.4-8.2)
[2020-08-22 17:33] LABS: ALK PHOS 113 U/L (45-117)
[2020-08-22] MEDS ORDERED: LACTATED RINGERS SOLUTION 1000 ML INFUS.BAG IV ONE (17:42)
[2020-08-22 17:51] LABS: MAGNESIUM 1.5 mg/dL (1.8-2.4)
[2020-08-22] MEDS ORDERED: MAGNESIUM SULF 50% (8.12 MEQ/2 ML-1 GM VIAL) IVPB ONE (18:20)
[2020-08-22] MEDS ORDERED: POTASSIUM CHLORIDE TABS 20 MEQ TABLET.ER (FP) PO ONE ×2 (18:20→18:24)
[2020-08-22] MEDS ORDERED: MAGNESIUM SULFATE IN WATER 2 GM/50 ML IVPB IVPB ONE (18:24)
[2020-08-22] MEDS ORDERED: SODIUM CHLORIDE 0.9% 500 ML INFUS.BAG IV ONE (19:20)
[2020-08-23 06:52] VITALS: BP 105/66; PULSE 51; TEMP 97.8
== END 2020-08-23 08:25 | disposition home or self-care (01) ==
LOC: JER 15:22
PROC: 3E033GC Introduction of Other Therapeutic Substance into Peripheral Vein, Percutaneous Approach (ICD-10-PCS; principal; 2020-08-22)
DX: R07.9 Chest pain, unspecified (principal); M25.511 Pain in right shoulder
CPT/HCPCS: 36415; 71045-TC-FY; 71275-TC; 73030-TC-RT-FY; 80053; 82550; 82553; 83735; 84484; 85025; 85379; 93005; 93010; 99285-25; Q9967

== ENCOUNTER 2020-08-23 09:04 | Inpatient (IN) | payer OTHER ==
[2020-08-23] MEDS ORDERED: MENTHOL/PHENOL 1 EACH UD MM PRN (10:47)
[2020-08-23] MEDS ORDERED: METHOCARBAMOL 500 MG TABLET PO PRN (10:47)
[2020-08-23] MEDS ORDERED: BISMUTH SUBSALICYLATE 524 MG/30 ML UD PO PRN (10:47)
[2020-08-23] MEDS ORDERED: chlordiazePOXIDE HCL 25 MG CAPSULE PO PRN (10:47)
[2020-08-23] MEDS ORDERED: IBUPROFEN 400 MG TABLET (FP) PO PRN (10:47)
[2020-08-23] MEDS ORDERED: MAG HYDROX/AL HYDROX/SIMETH 30 ML UNIT-DOSE CUP PO PRN (10:47)
[2020-08-23] MEDS ORDERED: MAGNESIUM HYDROX 2400MG/30ML ORAL SUSPENSION 30 ML CUP PO PRN (10:47)
[2020-08-23] MEDS ORDERED: MAGNESIUM CITRATE 300 ML BOTTLE PO PRN (10:47)
[2020-08-23] MEDS ORDERED: ONDANSETRON *ODT* 4 MG TABLET SL PRN (10:47)
[2020-08-23] MEDS ORDERED: ACETAMINOPHEN 325 MG TABLET (FP) PO PRN ×2 (10:47)
[2020-08-23] MEDS ORDERED: PNEUMOC 13-VAL CONJ-DIP CRM/PF 0.5 ML DISP.SYRIN IM ONE (11:00)
[2020-08-23 11:07] VITALS: BMI 31.5
[2020-08-23] MEDS: levETIRAcetam 500 MG TABLET (FP) PO SCH ×2 (12:41→22:35)
[2020-08-23] MEDS: amLODIPine BESYLATE 5 MG TABLET (FP) PO SCH (12:42)
[2020-08-23] MEDS: ASPIRIN 81 MG CHEWABLE TABLETS PO SCH (12:43)
[2020-08-23] MEDS ORDERED: BACITRACIN 0.9 GM PACKET ONE (13:42)
[2020-08-23] MEDS: ISOSORBIDE MONONITRATE 30 MG TAB.SR.24H (FP) PO SCH (13:48)
[2020-08-23] MEDS: GABAPENTIN 300 MG CAPSULE PO SCH ×2 (13:48→22:34)
[2020-08-23] MEDS: COLCHICINE 0.6 MG TAB PO SCH (13:48)
[2020-08-23] MEDS: BACITRACIN 15 GM TUBE TOPICAL OINTMENT TP SCH ×2 (13:49→22:36)
[2020-08-23] MEDS: hydrOXYzine PAMOATE 25 MG CAPSULE (FP) PO SCH ×3 (13:49→22:34)
[2020-08-23] MEDS: hydrALAZINE HCL 10 MG TABLET PO SCH ×2 (13:49→22:36)
[2020-08-23] MEDS: metFORMIN HCL 500 MG TABLET (FP) PO SCH (17:53)
[2020-08-23] MEDS: chlordiazePOXIDE HCL 25 MG CAPSULE PO SCH ×2 (17:54→22:37)
[2020-08-23] MEDS ORDERED: SUVOREXANT 10 MG TABLET PO PRN (22:00)
[2020-08-23] MEDS: MELATONIN 5 MG TABLETS PO SCH (22:34)
[2020-08-23] MEDS: ATORVASTATIN CA 40 MG TABLET (FP) PO SCH (22:35)
[2020-08-23] MEDS: THIAMINE HCL 100 MG TABLET (FP) PO SCH (22:36)
[2020-08-24] MEDS: hydrALAZINE HCL 10 MG TABLET PO SCH ×3 (07:08→22:11)
[2020-08-24] MEDS: chlordiazePOXIDE HCL 25 MG CAPSULE PO SCH ×4 (07:08→22:11)
[2020-08-24] MEDS: GABAPENTIN 300 MG CAPSULE PO SCH ×3 (07:08→22:11)
[2020-08-24] MEDS: hydrOXYzine PAMOATE 25 MG CAPSULE (FP) PO SCH ×5 (07:08→23:26)
[2020-08-24] MEDS: metFORMIN HCL 500 MG TABLET (FP) PO SCH ×2 (07:08→17:07)
[2020-08-24] MEDS: CLOPIDOGREL BISULFATE 75 MG TABLET (FP) PO SCH (10:31)
[2020-08-24] MEDS: ASPIRIN 81 MG CHEWABLE TABLETS PO SCH (10:31)
[2020-08-24] MEDS: COLCHICINE 0.6 MG TAB PO SCH (10:31)
[2020-08-24] MEDS: ISOSORBIDE MONONITRATE 30 MG TAB.SR.24H (FP) PO SCH (10:31)
[2020-08-24] MEDS: LISINOPRIL 20 MG TABLET PO SCH (10:31)
[2020-08-24] MEDS: PRENATAL VITAMINS W/ FOLIC ACID TABLET (FP) PO SCH (10:31)
[2020-08-24] MEDS: levETIRAcetam 500 MG TABLET (FP) PO SCH ×2 (10:31→22:11)
[2020-08-24] MEDS: amLODIPine BESYLATE 5 MG TABLET (FP) PO SCH (10:32)
[2020-08-24] MEDS: BACITRACIN 15 GM TUBE TOPICAL OINTMENT TP SCH ×2 (10:34→23:24)
[2020-08-24 11:42] LABS: HEMATOCRIT 31.5 % (35.4-49); HEMOGLOBIN 10.7 GM/dL (11.7-16.9); MCHC 33.8 g/dl (32.0-35.9); MEAN CELL VOLUME 85.7 fl (80-96); MEAN PLT VOLUME 8.4 fl (7.5-11.1); PLATELET COUNT 87 K/MM3 (134-434); RBC 3.68 M/mm3 (4.00-5.60); RDW 16.6 % (11.9-15.9); WHITE BLOOD COUNT 3.5 K/mm3 (4.0-10.0)
[2020-08-24 11:48] LABS: POTASSIUM 3.4 mmol/L (3.5-5.1)
[2020-08-24 11:54] LABS: CREATININE 0.7 mg/dL (0.55-1.3)
[2020-08-24 11:55] LABS: BILIRUBIN,TOTAL 0.6 mg/dL (0.2-1); TOT PROT 6.2 g/dl (6.4-8.2)
[2020-08-24] MEDS ORDERED: POTASSIUM CHLORIDE ORAL LIQUID 20 MEQ/15 ML PO ONE (15:30)
[2020-08-24 17:55] LABS: URINE APPEARANCE CLEAR; URINE BILIRUBIN NEGATIVE (NEGATIVE); URINE COLOR YELLOW; URINE GLUCOSE (UA) NEGATIVE (NEGATIVE); URINE KETONE NEGATIVE (NEGATIVE); URINE LEUK ESTERASE NEGATIVE (NEGATIVE); URINE NITRITE NEGATIVE (NEGATIVE); URINE PROTEIN NEGATIVE (NEGATIVE); URINE UROBILINOGEN 0.2 mg/dL (0.2-1.0)
[2020-08-24] MEDS: ATORVASTATIN CA 40 MG TABLET (FP) PO SCH (22:11)
[2020-08-24] MEDS: THIAMINE HCL 100 MG TABLET (FP) PO SCH (22:11)
[2020-08-24] MEDS: MELATONIN 5 MG TABLETS PO SCH (23:25)
[2020-08-25] MEDS: chlordiazePOXIDE HCL 25 MG CAPSULE PO SCH ×4 (05:38→23:14)
[2020-08-25] MEDS: hydrALAZINE HCL 10 MG TABLET PO SCH ×3 (05:40→23:14)
[2020-08-25] MEDS: hydrOXYzine PAMOATE 25 MG CAPSULE (FP) PO SCH ×5 (05:41→23:15)
[2020-08-25] MEDS: GABAPENTIN 300 MG CAPSULE PO SCH ×3 (05:44→23:14)
[2020-08-25] MEDS: metFORMIN HCL 500 MG TABLET (FP) PO SCH ×2 (07:11→18:34)
[2020-08-25] MEDS: POTASSIUM CHLORIDE ORAL LIQUID 20 MEQ/15 ML PO SCH (10:13)
[2020-08-25] MEDS: ASPIRIN 81 MG CHEWABLE TABLETS PO SCH (10:14)
[2020-08-25] MEDS: COLCHICINE 0.6 MG TAB PO SCH (10:14)
[2020-08-25] MEDS: LISINOPRIL 20 MG TABLET PO SCH (10:14)
[2020-08-25] MEDS: amLODIPine BESYLATE 5 MG TABLET (FP) PO SCH (10:14)
[2020-08-25] MEDS: CLOPIDOGREL BISULFATE 75 MG TABLET (FP) PO SCH (10:14)
[2020-08-25] MEDS: levETIRAcetam 500 MG TABLET (FP) PO SCH ×2 (10:14→23:15)
[2020-08-25] MEDS: ISOSORBIDE MONONITRATE 30 MG TAB.SR.24H (FP) PO SCH (10:14)
[2020-08-25] MEDS: PRENATAL VITAMINS W/ FOLIC ACID TABLET (FP) PO SCH (10:14)
[2020-08-25] MEDS: BACITRACIN 15 GM TUBE TOPICAL OINTMENT TP SCH ×2 (11:09→23:15)
[2020-08-25] MEDS: THIAMINE HCL 100 MG TABLET (FP) PO SCH (23:14)
[2020-08-25] MEDS: ATORVASTATIN CA 40 MG TABLET (FP) PO SCH (23:15)
[2020-08-25] MEDS: MELATONIN 5 MG TABLETS PO SCH (23:15)
[2020-08-26] MEDS ORDERED: chlordiazePOXIDE HCL 10 MG CAPSULE PO PRN
[2020-08-26] MEDS: chlordiazePOXIDE HCL 10 MG CAPSULE PO SCH ×4 (06:16→22:26)
[2020-08-26] MEDS: GABAPENTIN 300 MG CAPSULE PO SCH ×3 (06:17→22:23)
[2020-08-26] MEDS: metFORMIN HCL 500 MG TABLET (FP) PO SCH ×2 (06:17→18:46)
[2020-08-26] MEDS: hydrALAZINE HCL 10 MG TABLET PO SCH ×3 (06:17→22:23)
[2020-08-26] MEDS: hydrOXYzine PAMOATE 25 MG CAPSULE (FP) PO SCH ×5 (06:17→22:25)
[2020-08-26] MEDS: levETIRAcetam 500 MG TABLET (FP) PO SCH ×2 (11:34→22:23)
[2020-08-26] MEDS: CLOPIDOGREL BISULFATE 75 MG TABLET (FP) PO SCH (11:34)
[2020-08-26] MEDS: amLODIPine BESYLATE 5 MG TABLET (FP) PO SCH (11:34)
[2020-08-26] MEDS: PRENATAL VITAMINS W/ FOLIC ACID TABLET (FP) PO SCH (11:34)
[2020-08-26] MEDS: ASPIRIN 81 MG CHEWABLE TABLETS PO SCH (11:35)
[2020-08-26] MEDS: BACITRACIN 15 GM TUBE TOPICAL OINTMENT TP SCH ×2 (11:35→22:27)
[2020-08-26] MEDS: ISOSORBIDE MONONITRATE 30 MG TAB.SR.24H (FP) PO SCH (11:35)
[2020-08-26] MEDS: LISINOPRIL 20 MG TABLET PO SCH (11:35)
[2020-08-26] MEDS: POTASSIUM CHLORIDE ORAL LIQUID 20 MEQ/15 ML PO SCH ×2 (14:13→22:25)
[2020-08-26] MEDS: COLCHICINE 0.6 MG TAB PO SCH (15:00)
[2020-08-26] MEDS: MELATONIN 5 MG TABLETS PO SCH (22:23)
[2020-08-26] MEDS: ATORVASTATIN CA 40 MG TABLET (FP) PO SCH (22:23)
[2020-08-26] MEDS: THIAMINE HCL 100 MG TABLET (FP) PO SCH (22:25)
[2020-08-27] MEDS: GABAPENTIN 300 MG CAPSULE PO SCH ×3 (06:10→22:06)
[2020-08-27] MEDS: metFORMIN HCL 500 MG TABLET (FP) PO SCH ×2 (06:10→18:04)
[2020-08-27] MEDS: hydrALAZINE HCL 10 MG TABLET PO SCH ×3 (06:11→22:06)
[2020-08-27] MEDS: chlordiazePOXIDE HCL 10 MG CAPSULE PO SCH ×2 (06:11→18:05)
[2020-08-27] MEDS: hydrOXYzine PAMOATE 25 MG CAPSULE (FP) PO SCH ×5 (06:12→22:08)
[2020-08-27] MEDS: levETIRAcetam 500 MG TABLET (FP) PO SCH ×2 (10:33→22:06)
[2020-08-27] MEDS: COLCHICINE 0.6 MG TAB PO SCH (10:33)
[2020-08-27] MEDS: LISINOPRIL 20 MG TABLET PO SCH (10:33)
[2020-08-27] MEDS: PRENATAL VITAMINS W/ FOLIC ACID TABLET (FP) PO SCH (10:33)
[2020-08-27] MEDS: ASPIRIN 81 MG CHEWABLE TABLETS PO SCH (10:34)
[2020-08-27] MEDS: CLOPIDOGREL BISULFATE 75 MG TABLET (FP) PO SCH (10:34)
[2020-08-27] MEDS: ISOSORBIDE MONONITRATE 30 MG TAB.SR.24H (FP) PO SCH (10:34)
[2020-08-27] MEDS: amLODIPine BESYLATE 5 MG TABLET (FP) PO SCH (10:34)
[2020-08-27] MEDS: BACITRACIN 15 GM TUBE TOPICAL OINTMENT TP SCH ×2 (11:45→22:07)
[2020-08-27] MEDS: MELATONIN 5 MG TABLETS PO SCH (22:06)
[2020-08-27] MEDS: THIAMINE HCL 100 MG TABLET (FP) PO SCH (22:06)
[2020-08-27] MEDS: ATORVASTATIN CA 40 MG TABLET (FP) PO SCH (22:06)
[2020-08-28] MEDS ORDERED: chlordiazePOXIDE HCL 10 MG CAPSULE PO ONE (05:00)
[2020-08-28] MEDS: GABAPENTIN 300 MG CAPSULE PO SCH ×2 (06:45→14:03)
[2020-08-28] MEDS: hydrOXYzine PAMOATE 25 MG CAPSULE (FP) PO SCH ×3 (06:46→14:04)
[2020-08-28] MEDS: hydrALAZINE HCL 10 MG TABLET PO SCH ×2 (06:47→14:03)
[2020-08-28] MEDS: metFORMIN HCL 500 MG TABLET (FP) PO SCH (06:51)
[2020-08-28 09:45] VITALS: PULSE 75
[2020-08-28] MEDS: amLODIPine BESYLATE 5 MG TABLET (FP) PO SCH (10:50)
[2020-08-28] MEDS: COLCHICINE 0.6 MG TAB PO SCH (10:50)
[2020-08-28] MEDS: CLOPIDOGREL BISULFATE 75 MG TABLET (FP) PO SCH (10:50)
[2020-08-28] MEDS: PRENATAL VITAMINS W/ FOLIC ACID TABLET (FP) PO SCH (10:50)
[2020-08-28] MEDS: LISINOPRIL 20 MG TABLET PO SCH (10:50)
[2020-08-28] MEDS: ISOSORBIDE MONONITRATE 30 MG TAB.SR.24H (FP) PO SCH (10:50)
[2020-08-28] MEDS: BACITRACIN 15 GM TUBE TOPICAL OINTMENT TP SCH (10:50)
[2020-08-28] MEDS: levETIRAcetam 500 MG TABLET (FP) PO SCH (10:50)
[2020-08-28] MEDS: ASPIRIN 81 MG CHEWABLE TABLETS PO SCH (10:50)
[2020-08-28 13:41] VITALS: BP 126/73; TEMP 97.9
== END 2020-08-28 14:30 | disposition other institution (70) | DRG 774 ==
LOC: YASAS 09:04 → Y6N 11:46
PROVIDERS: ADMIT Allergy & Immunology; ATTEND Allergy & Immunology
PROC: HZ2ZZZZ Detoxification Services for Substance Abuse Treatment (ICD-10-PCS; principal; 2020-08-23)
DX: F10.230 Alcohol dependence with withdrawal, uncomplicated (principal); F14.20 Cocaine dependence, uncomplicated; F12.20 Cannabis dependence, uncomplicated; F17.210 Nicotine dependence, cigarettes, uncomplicated; F10.282 Alcohol dependence with alcohol-induced sleep disorder; F10.24 Alcohol dependence with alcohol-induced mood disorder; G62.9 Polyneuropathy, unspecified; I25.10 Atherosclerotic heart disease of native coronary artery without angina pectoris; I10 Essential (primary) hypertension; Z95.5 Presence of coronary angioplasty implant and graft; E11.9 Type 2 diabetes mellitus without complications; Z79.4 Long term (current) use of insulin; M10.9 Gout, unspecified; R29.6 Repeated falls; Z62.810 Personal history of physical and sexual abuse in childhood; Z99.89 Dependence on other enabling machines and devices; Z88.5 Allergy status to narcotic agent; Z86.19 Personal history of other infectious and parasitic diseases; Z56.0 Unemployment, unspecified; Z87.820 Personal history of traumatic brain injury; Z98.890 Other specified postprocedural states; Z59.0 Homelessness
CPT/HCPCS: 36415; 80053; 81003; 82962; 85027; 86780; C9803; U0003

== ENCOUNTER 2020-08-28 15:05 | Inpatient (IN) | payer OTHER ==
[2020-08-28] MEDS ORDERED: P-EPHED 60MG/TRIPROLIDI 2.5MG TABLET PO PRN (15:55)
[2020-08-28] MEDS ORDERED: MAGNESIUM HYDROX 2400MG/30ML ORAL SUSPENSION 30 ML CUP PO PRN (15:55)
[2020-08-28] MEDS ORDERED: MAGNESIUM CITRATE 300 ML BOTTLE PO PRN (15:55)
[2020-08-28] MEDS ORDERED: NICOTINE POLACRILEX 2 MG GUM BUC PRN (15:55)
[2020-08-28] MEDS ORDERED: ACETAMINOPHEN 325 MG TABLET (FP) PO PRN (15:55)
[2020-08-28] MEDS ORDERED: MENTHOL/PHENOL 1 EACH UD MM PRN (15:55)
[2020-08-28] MEDS ORDERED: IBUPROFEN 400 MG TABLET (FP) PO PRN (15:55)
[2020-08-28] MEDS ORDERED: LOPERAMIDE HCL 2 MG CAPSULE PO PRN (15:55)
[2020-08-28] MEDS ORDERED: MAG HYDROX/AL HYDROX/SIMETH 30 ML UNIT-DOSE CUP PO PRN (15:55)
[2020-08-28] MEDS ORDERED: guaiFENesin 200 MG/10 ML 10 ML UNIT-DOSE CUPS PO PRN (15:55)
[2020-08-28] MEDS ORDERED: ONDANSETRON *ODT* 4 MG TABLET SL PRN (16:15)
[2020-08-28] MEDS: metFORMIN HCL 500 MG TABLET (FP) PO SCH (17:12)
[2020-08-28] MEDS: levETIRAcetam 500 MG TABLET (FP) PO SCH (21:42)
[2020-08-28] MEDS: BACITRACIN 0.9 GM PACKET TP SCH (21:42)
[2020-08-28] MEDS: ATORVASTATIN CA 40 MG TABLET (FP) PO SCH (21:42)
[2020-08-28] MEDS: MELATONIN 5 MG TABLETS PO SCH (21:42)
[2020-08-28] MEDS: hydrALAZINE HCL 10 MG TABLET PO SCH (21:42)
[2020-08-28] MEDS: THIAMINE HCL 100 MG TABLET (FP) PO SCH (21:42)
[2020-08-28] MEDS: GABAPENTIN 300 MG CAPSULE PO SCH (21:42)
[2020-08-29] MEDS: GABAPENTIN 300 MG CAPSULE PO SCH ×3 (06:50→21:07)
[2020-08-29] MEDS: hydrALAZINE HCL 10 MG TABLET PO SCH ×3 (06:50→22:08)
[2020-08-29] MEDS: metFORMIN HCL 500 MG TABLET (FP) PO SCH ×2 (06:50→16:58)
[2020-08-29] MEDS: CLOPIDOGREL BISULFATE 75 MG TABLET (FP) PO SCH (10:07)
[2020-08-29] MEDS: levETIRAcetam 500 MG TABLET (FP) PO SCH ×2 (10:07→21:07)
[2020-08-29] MEDS: ISOSORBIDE MONONITRATE 30 MG TAB.SR.24H (FP) PO SCH (10:07)
[2020-08-29] MEDS: amLODIPine BESYLATE 10 MG TABLET (FP) PO SCH (10:07)
[2020-08-29] MEDS: metoPROLOL SUCCINATE 25 MG TAB.SR.24H (FP) PO SCH (10:07)
[2020-08-29] MEDS: ASPIRIN 81 MG CHEWABLE TABLETS PO SCH (10:07)
[2020-08-29] MEDS: LISINOPRIL 20 MG TABLET PO SCH (10:07)
[2020-08-29] MEDS: PRENATAL VITAMINS W/ FOLIC ACID TABLET (FP) PO SCH (10:07)
[2020-08-29] MEDS: BACITRACIN 0.9 GM PACKET TP SCH ×2 (10:07→22:03)
[2020-08-29] MEDS: NICOTINE 7 MG/24 HOURS TOPICAL PATCH TD SCH (10:08)
[2020-08-29] MEDS: COLCHICINE 0.6 MG TAB PO SCH (10:08)
[2020-08-29] MEDS: METHOCARBAMOL 500 MG TABLET PO PRN (21:07)
[2020-08-29] MEDS: hydrOXYzine PAMOATE 25 MG CAPSULE (FP) PO PRN (21:07)
[2020-08-29] MEDS: ATORVASTATIN CA 40 MG TABLET (FP) PO SCH (21:08)
[2020-08-29] MEDS: THIAMINE HCL 100 MG TABLET (FP) PO SCH (21:09)
[2020-08-29] MEDS: MELATONIN 5 MG TABLETS PO SCH (22:03)
[2020-08-30] MEDS: GABAPENTIN 300 MG CAPSULE PO SCH ×3 (07:03→21:53)
[2020-08-30] MEDS: hydrALAZINE HCL 10 MG TABLET PO SCH ×3 (07:03→21:54)
[2020-08-30] MEDS: metFORMIN HCL 500 MG TABLET (FP) PO SCH ×2 (07:03→16:52)
[2020-08-30] MEDS: PRENATAL VITAMINS W/ FOLIC ACID TABLET (FP) PO SCH (09:48)
[2020-08-30] MEDS: COLCHICINE 0.6 MG TAB PO SCH (09:49)
[2020-08-30] MEDS: CLOPIDOGREL BISULFATE 75 MG TABLET (FP) PO SCH (09:49)
[2020-08-30] MEDS: amLODIPine BESYLATE 10 MG TABLET (FP) PO SCH (09:49)
[2020-08-30] MEDS: levETIRAcetam 500 MG TABLET (FP) PO SCH ×2 (09:49→21:54)
[2020-08-30] MEDS: metoPROLOL SUCCINATE 25 MG TAB.SR.24H (FP) PO SCH (09:49)
[2020-08-30] MEDS: BACITRACIN 0.9 GM PACKET TP SCH ×2 (09:49→21:54)
[2020-08-30] MEDS: ASPIRIN 81 MG CHEWABLE TABLETS PO SCH (09:50)
[2020-08-30] MEDS: LISINOPRIL 20 MG TABLET PO SCH (09:50)
[2020-08-30] MEDS: ISOSORBIDE MONONITRATE 30 MG TAB.SR.24H (FP) PO SCH (09:50)
[2020-08-30] MEDS: NICOTINE 7 MG/24 HOURS TOPICAL PATCH TD SCH (09:51)
[2020-08-30] MEDS: ATORVASTATIN CA 40 MG TABLET (FP) PO SCH (21:53)
[2020-08-30] MEDS: METHOCARBAMOL 500 MG TABLET PO PRN (21:53)
[2020-08-30] MEDS: THIAMINE HCL 100 MG TABLET (FP) PO SCH (21:53)
[2020-08-30] MEDS: hydrOXYzine PAMOATE 25 MG CAPSULE (FP) PO PRN (21:54)
[2020-08-30] MEDS: MELATONIN 5 MG TABLETS PO SCH (21:54)
[2020-08-31] MEDS: GABAPENTIN 300 MG CAPSULE PO SCH ×3 (06:25→21:11)
[2020-08-31] MEDS: hydrALAZINE HCL 10 MG TABLET PO SCH ×3 (06:26→21:11)
[2020-08-31] MEDS: metFORMIN HCL 500 MG TABLET (FP) PO SCH ×2 (06:26→16:46)
[2020-08-31] MEDS: CLOPIDOGREL BISULFATE 75 MG TABLET (FP) PO SCH (10:35)
[2020-08-31] MEDS: BACITRACIN 0.9 GM PACKET TP SCH ×2 (10:35→21:10)
[2020-08-31] MEDS: levETIRAcetam 500 MG TABLET (FP) PO SCH ×2 (10:35→21:11)
[2020-08-31] MEDS: NICOTINE 7 MG/24 HOURS TOPICAL PATCH TD SCH (10:35)
[2020-08-31] MEDS: amLODIPine BESYLATE 10 MG TABLET (FP) PO SCH (10:35)
[2020-08-31] MEDS: metoPROLOL SUCCINATE 25 MG TAB.SR.24H (FP) PO SCH (10:35)
[2020-08-31] MEDS: PRENATAL VITAMINS W/ FOLIC ACID TABLET (FP) PO SCH (10:35)
[2020-08-31] MEDS: LISINOPRIL 20 MG TABLET PO SCH (10:35)
[2020-08-31] MEDS: COLCHICINE 0.6 MG TAB PO SCH (10:36)
[2020-08-31] MEDS: ISOSORBIDE MONONITRATE 30 MG TAB.SR.24H (FP) PO SCH (10:36)
[2020-08-31] MEDS: ASPIRIN 81 MG CHEWABLE TABLETS PO SCH (10:37)
[2020-08-31] MEDS ORDERED: PT OWN MED DRAWER 7, Y5N ONE ×2 (10:49→13:12)
[2020-08-31] MEDS: ATORVASTATIN CA 40 MG TABLET (FP) PO SCH (21:11)
[2020-08-31] MEDS: THIAMINE HCL 100 MG TABLET (FP) PO SCH (21:11)
[2020-08-31] MEDS: MELATONIN 5 MG TABLETS PO SCH (21:12)
[2020-08-31] MEDS: METHOCARBAMOL 500 MG TABLET PO PRN (21:13)
[2020-08-31] MEDS: hydrOXYzine PAMOATE 25 MG CAPSULE (FP) PO PRN (21:14)
[2020-09-01] MEDS: hydrALAZINE HCL 10 MG TABLET PO SCH ×3 (06:42→21:43)
[2020-09-01] MEDS: GABAPENTIN 300 MG CAPSULE PO SCH ×3 (06:42→21:42)
[2020-09-01] MEDS: metFORMIN HCL 500 MG TABLET (FP) PO SCH ×2 (06:42→16:52)
[2020-09-01] MEDS ORDERED: PT OWN MED DRAWER 7, Y5N ONE ×2 (08:53→12:46)
[2020-09-01] MEDS: metoPROLOL SUCCINATE 25 MG TAB.SR.24H (FP) PO SCH (10:15)
[2020-09-01] MEDS: BACITRACIN 0.9 GM PACKET TP SCH ×2 (10:15→21:42)
[2020-09-01] MEDS: PRENATAL VITAMINS W/ FOLIC ACID TABLET (FP) PO SCH (10:15)
[2020-09-01] MEDS: amLODIPine BESYLATE 10 MG TABLET (FP) PO SCH (10:16)
[2020-09-01] MEDS: COLCHICINE 0.6 MG TAB PO SCH (10:16)
[2020-09-01] MEDS: levETIRAcetam 500 MG TABLET (FP) PO SCH ×2 (10:16→21:42)
[2020-09-01] MEDS: NICOTINE 7 MG/24 HOURS TOPICAL PATCH TD SCH (10:16)
[2020-09-01] MEDS: CLOPIDOGREL BISULFATE 75 MG TABLET (FP) PO SCH (10:16)
[2020-09-01] MEDS: LISINOPRIL 20 MG TABLET PO SCH (10:16)
[2020-09-01] MEDS: ASPIRIN 81 MG CHEWABLE TABLETS PO SCH (10:16)
[2020-09-01] MEDS: ISOSORBIDE MONONITRATE 30 MG TAB.SR.24H (FP) PO SCH (10:16)
[2020-09-01] MEDS: MELATONIN 5 MG TABLETS PO SCH (21:41)
[2020-09-01] MEDS: METHOCARBAMOL 500 MG TABLET PO PRN (21:42)
[2020-09-01] MEDS: hydrOXYzine PAMOATE 25 MG CAPSULE (FP) PO PRN (21:42)
[2020-09-01] MEDS: ATORVASTATIN CA 40 MG TABLET (FP) PO SCH (21:42)
[2020-09-01] MEDS: THIAMINE HCL 100 MG TABLET (FP) PO SCH (21:42)
[2020-09-02] MEDS: hydrALAZINE HCL 10 MG TABLET PO SCH ×3 (06:27→23:36)
[2020-09-02] MEDS: GABAPENTIN 300 MG CAPSULE PO SCH ×3 (06:27→21:08)
[2020-09-02] MEDS: metFORMIN HCL 500 MG TABLET (FP) PO SCH ×2 (06:28→16:43)
[2020-09-02] MEDS: levETIRAcetam 500 MG TABLET (FP) PO SCH ×2 (10:24→21:09)
[2020-09-02] MEDS: LISINOPRIL 20 MG TABLET PO SCH (10:24)
[2020-09-02] MEDS: ASPIRIN 81 MG CHEWABLE TABLETS PO SCH (10:24)
[2020-09-02] MEDS: PRENATAL VITAMINS W/ FOLIC ACID TABLET (FP) PO SCH (10:24)
[2020-09-02] MEDS: metoPROLOL SUCCINATE 25 MG TAB.SR.24H (FP) PO SCH (10:24)
[2020-09-02] MEDS: amLODIPine BESYLATE 10 MG TABLET (FP) PO SCH (10:24)
[2020-09-02] MEDS: CLOPIDOGREL BISULFATE 75 MG TABLET (FP) PO SCH (10:24)
[2020-09-02] MEDS: BACITRACIN 0.9 GM PACKET TP SCH ×2 (10:24→21:10)
[2020-09-02] MEDS: COLCHICINE 0.6 MG TAB PO SCH (10:25)
[2020-09-02] MEDS: ISOSORBIDE MONONITRATE 30 MG TAB.SR.24H (FP) PO SCH (10:25)
[2020-09-02] MEDS: NICOTINE 7 MG/24 HOURS TOPICAL PATCH TD SCH (10:25)
[2020-09-02] MEDS: ATORVASTATIN CA 40 MG TABLET (FP) PO SCH (21:09)
[2020-09-02] MEDS: MELATONIN 5 MG TABLETS PO SCH (21:09)
[2020-09-02] MEDS: THIAMINE HCL 100 MG TABLET (FP) PO SCH (21:09)
[2020-09-03] MEDS: hydrALAZINE HCL 10 MG TABLET PO SCH ×3 (07:03→21:20)
[2020-09-03] MEDS: metFORMIN HCL 500 MG TABLET (FP) PO SCH ×2 (07:03→16:51)
[2020-09-03] MEDS: GABAPENTIN 300 MG CAPSULE PO SCH ×3 (07:03→21:19)
[2020-09-03] MEDS: amLODIPine BESYLATE 10 MG TABLET (FP) PO SCH (10:26)
[2020-09-03] MEDS: BACITRACIN 0.9 GM PACKET TP SCH ×2 (10:26→21:19)
[2020-09-03] MEDS: levETIRAcetam 500 MG TABLET (FP) PO SCH ×2 (10:27→21:19)
[2020-09-03] MEDS: NICOTINE 7 MG/24 HOURS TOPICAL PATCH TD SCH (10:27)
[2020-09-03] MEDS: PRENATAL VITAMINS W/ FOLIC ACID TABLET (FP) PO SCH (10:27)
[2020-09-03] MEDS: COLCHICINE 0.6 MG TAB PO SCH (10:27)
[2020-09-03] MEDS: CLOPIDOGREL BISULFATE 75 MG TABLET (FP) PO SCH (10:27)
[2020-09-03] MEDS: ISOSORBIDE MONONITRATE 30 MG TAB.SR.24H (FP) PO SCH (10:27)
[2020-09-03] MEDS: LISINOPRIL 20 MG TABLET PO SCH (10:27)
[2020-09-03] MEDS: ASPIRIN 81 MG CHEWABLE TABLETS PO SCH (10:27)
[2020-09-03] MEDS: ATORVASTATIN CA 40 MG TABLET (FP) PO SCH (21:19)
[2020-09-03] MEDS: METHOCARBAMOL 500 MG TABLET PO PRN (21:19)
[2020-09-03] MEDS: THIAMINE HCL 100 MG TABLET (FP) PO SCH (21:19)
[2020-09-03] MEDS: hydrOXYzine PAMOATE 25 MG CAPSULE (FP) PO PRN (21:19)
[2020-09-03] MEDS: MELATONIN 5 MG TABLETS PO SCH (21:19)
[2020-09-04] MEDS: metFORMIN HCL 500 MG TABLET (FP) PO SCH ×2 (06:32→16:18)
[2020-09-04] MEDS: GABAPENTIN 300 MG CAPSULE PO SCH ×3 (06:32→21:53)
[2020-09-04] MEDS: hydrALAZINE HCL 10 MG TABLET PO SCH ×3 (06:32→21:53)
[2020-09-04] MEDS: BACITRACIN 0.9 GM PACKET TP SCH ×2 (10:04→23:26)
[2020-09-04] MEDS: ASPIRIN 81 MG CHEWABLE TABLETS PO SCH (10:04)
[2020-09-04] MEDS: amLODIPine BESYLATE 10 MG TABLET (FP) PO SCH (10:04)
[2020-09-04] MEDS: LISINOPRIL 20 MG TABLET PO SCH (10:04)
[2020-09-04] MEDS: CLOPIDOGREL BISULFATE 75 MG TABLET (FP) PO SCH (10:04)
[2020-09-04] MEDS: ISOSORBIDE MONONITRATE 30 MG TAB.SR.24H (FP) PO SCH (10:04)
[2020-09-04] MEDS: levETIRAcetam 500 MG TABLET (FP) PO SCH ×2 (10:04→21:53)
[2020-09-04] MEDS: PRENATAL VITAMINS W/ FOLIC ACID TABLET (FP) PO SCH (10:05)
[2020-09-04] MEDS: COLCHICINE 0.6 MG TAB PO SCH (10:05)
[2020-09-04] MEDS: NICOTINE 7 MG/24 HOURS TOPICAL PATCH TD SCH (10:05)
[2020-09-04] MEDS: THIAMINE HCL 100 MG TABLET (FP) PO SCH (21:53)
[2020-09-04] MEDS: MELATONIN 5 MG TABLETS PO SCH (22:00)
[2020-09-04] MEDS: hydrOXYzine PAMOATE 25 MG CAPSULE (FP) PO PRN (22:00)
[2020-09-04] MEDS: ATORVASTATIN CA 40 MG TABLET (FP) PO SCH (22:01)
[2020-09-05] MEDS: metFORMIN HCL 500 MG TABLET (FP) PO SCH ×2 (06:25→17:48)
[2020-09-05] MEDS: hydrALAZINE HCL 10 MG TABLET PO SCH ×3 (06:25→21:07)
[2020-09-05] MEDS: GABAPENTIN 300 MG CAPSULE PO SCH ×3 (06:25→21:07)
[2020-09-05] MEDS ORDERED: MASKS NR ONE (09:48)
[2020-09-05] MEDS: amLODIPine BESYLATE 10 MG TABLET (FP) PO SCH (10:49)
[2020-09-05] MEDS: PRENATAL VITAMINS W/ FOLIC ACID TABLET (FP) PO SCH (10:49)
[2020-09-05] MEDS: COLCHICINE 0.6 MG TAB PO SCH (10:49)
[2020-09-05] MEDS: LISINOPRIL 20 MG TABLET PO SCH (10:50)
[2020-09-05] MEDS: levETIRAcetam 500 MG TABLET (FP) PO SCH ×2 (10:50→21:07)
[2020-09-05] MEDS: CLOPIDOGREL BISULFATE 75 MG TABLET (FP) PO SCH (10:50)
[2020-09-05] MEDS: ASPIRIN 81 MG CHEWABLE TABLETS PO SCH (10:50)
[2020-09-05] MEDS: ISOSORBIDE MONONITRATE 30 MG TAB.SR.24H (FP) PO SCH (10:53)
[2020-09-05] MEDS: NICOTINE 7 MG/24 HOURS TOPICAL PATCH TD SCH (10:53)
[2020-09-05] MEDS: BACITRACIN 0.9 GM PACKET TP SCH ×2 (11:20→21:07)
[2020-09-05] MEDS: THIAMINE HCL 100 MG TABLET (FP) PO SCH (21:07)
[2020-09-05] MEDS: ATORVASTATIN CA 40 MG TABLET (FP) PO SCH (21:07)
[2020-09-05] MEDS: MELATONIN 5 MG TABLETS PO SCH (21:08)
[2020-09-05] MEDS: hydrOXYzine PAMOATE 25 MG CAPSULE (FP) PO PRN (21:10)
[2020-09-06] MEDS: GABAPENTIN 300 MG CAPSULE PO SCH ×3 (06:30→21:56)
[2020-09-06] MEDS: hydrALAZINE HCL 10 MG TABLET PO SCH ×3 (06:30→21:55)
[2020-09-06] MEDS: metFORMIN HCL 500 MG TABLET (FP) PO SCH ×2 (06:31→16:37)
[2020-09-06] MEDS: COLCHICINE 0.6 MG TAB PO SCH (10:14)
[2020-09-06] MEDS: BACITRACIN 0.9 GM PACKET TP SCH ×2 (10:14→21:58)
[2020-09-06] MEDS: PRENATAL VITAMINS W/ FOLIC ACID TABLET (FP) PO SCH (10:14)
[2020-09-06] MEDS: ASPIRIN 81 MG CHEWABLE TABLETS PO SCH (10:15)
[2020-09-06] MEDS: CLOPIDOGREL BISULFATE 75 MG TABLET (FP) PO SCH (10:15)
[2020-09-06] MEDS: levETIRAcetam 500 MG TABLET (FP) PO SCH ×2 (10:15→21:56)
[2020-09-06] MEDS: LISINOPRIL 20 MG TABLET PO SCH (10:15)
[2020-09-06] MEDS: ISOSORBIDE MONONITRATE 30 MG TAB.SR.24H (FP) PO SCH (10:15)
[2020-09-06] MEDS: NICOTINE 7 MG/24 HOURS TOPICAL PATCH TD SCH (10:16)
[2020-09-06] MEDS: amLODIPine BESYLATE 10 MG TABLET (FP) PO SCH (10:16)
[2020-09-06] MEDS: ATORVASTATIN CA 40 MG TABLET (FP) PO SCH (21:56)
[2020-09-06] MEDS: THIAMINE HCL 100 MG TABLET (FP) PO SCH (21:58)
[2020-09-06] MEDS: MELATONIN 5 MG TABLETS PO SCH (21:58)
[2020-09-06] MEDS: hydrOXYzine PAMOATE 25 MG CAPSULE (FP) PO PRN (22:00)
[2020-09-07] MEDS: GABAPENTIN 300 MG CAPSULE PO SCH ×3 (06:41→21:53)
[2020-09-07] MEDS: hydrALAZINE HCL 10 MG TABLET PO SCH ×3 (06:41→21:52)
[2020-09-07] MEDS: metFORMIN HCL 500 MG TABLET (FP) PO SCH ×2 (06:41→17:03)
[2020-09-07] MEDS: PRENATAL VITAMINS W/ FOLIC ACID TABLET (FP) PO SCH (10:30)
[2020-09-07] MEDS: ASPIRIN 81 MG CHEWABLE TABLETS PO SCH (10:31)
[2020-09-07] MEDS: amLODIPine BESYLATE 10 MG TABLET (FP) PO SCH (10:31)
[2020-09-07] MEDS: CLOPIDOGREL BISULFATE 75 MG TABLET (FP) PO SCH (10:31)
[2020-09-07] MEDS: levETIRAcetam 500 MG TABLET (FP) PO SCH ×2 (10:31→21:53)
[2020-09-07] MEDS: BACITRACIN 0.9 GM PACKET TP SCH ×2 (10:31→22:18)
[2020-09-07] MEDS: LISINOPRIL 20 MG TABLET PO SCH (10:31)
[2020-09-07] MEDS: NICOTINE 7 MG/24 HOURS TOPICAL PATCH TD SCH (10:32)
[2020-09-07] MEDS: COLCHICINE 0.6 MG TAB PO SCH (10:32)
[2020-09-07] MEDS: ISOSORBIDE MONONITRATE 30 MG TAB.SR.24H (FP) PO SCH (10:32)
[2020-09-07] MEDS: ATORVASTATIN CA 40 MG TABLET (FP) PO SCH (21:53)
[2020-09-07] MEDS: MELATONIN 5 MG TABLETS PO SCH (21:53)
[2020-09-07] MEDS: THIAMINE HCL 100 MG TABLET (FP) PO SCH (21:53)
[2020-09-07] MEDS: hydrOXYzine PAMOATE 25 MG CAPSULE (FP) PO PRN (21:53)
[2020-09-08] MEDS: GABAPENTIN 300 MG CAPSULE PO SCH ×3 (06:39→21:07)
[2020-09-08] MEDS: metFORMIN HCL 500 MG TABLET (FP) PO SCH ×2 (06:39→16:45)
[2020-09-08] MEDS: hydrALAZINE HCL 10 MG TABLET PO SCH ×3 (06:39→21:08)
[2020-09-08] MEDS ORDERED: PT OWN MED DRAWER 7, Y5N ONE (09:06)
[2020-09-08] MEDS: NICOTINE 7 MG/24 HOURS TOPICAL PATCH TD SCH (09:17)
[2020-09-08] MEDS: LISINOPRIL 20 MG TABLET PO SCH (09:18)
[2020-09-08] MEDS: ISOSORBIDE MONONITRATE 30 MG TAB.SR.24H (FP) PO SCH (09:18)
[2020-09-08] MEDS: ASPIRIN 81 MG CHEWABLE TABLETS PO SCH (09:18)
[2020-09-08] MEDS: amLODIPine BESYLATE 10 MG TABLET (FP) PO SCH (09:18)
[2020-09-08] MEDS: levETIRAcetam 500 MG TABLET (FP) PO SCH ×2 (09:18→21:07)
[2020-09-08] MEDS: BACITRACIN 0.9 GM PACKET TP SCH ×2 (09:18→21:08)
[2020-09-08] MEDS: CLOPIDOGREL BISULFATE 75 MG TABLET (FP) PO SCH (09:18)
[2020-09-08] MEDS: COLCHICINE 0.6 MG TAB PO SCH (09:18)
[2020-09-08] MEDS: PRENATAL VITAMINS W/ FOLIC ACID TABLET (FP) PO SCH (09:19)
[2020-09-08] MEDS: hydrOXYzine PAMOATE 25 MG CAPSULE (FP) PO PRN (21:07)
[2020-09-08] MEDS: THIAMINE HCL 100 MG TABLET (FP) PO SCH (21:07)
[2020-09-08] MEDS: ATORVASTATIN CA 40 MG TABLET (FP) PO SCH (21:08)
[2020-09-08] MEDS: MELATONIN 5 MG TABLETS PO SCH (21:08)
[2020-09-09] MEDS: metFORMIN HCL 500 MG TABLET (FP) PO SCH (06:53)
[2020-09-09] MEDS: hydrALAZINE HCL 10 MG TABLET PO SCH (06:53)
[2020-09-09] MEDS: GABAPENTIN 300 MG CAPSULE PO SCH (06:53)
[2020-09-09 07:24] VITALS: BP 121/84; PULSE 73; TEMP 97.1
[2020-09-09] MEDS: levETIRAcetam 500 MG TABLET (FP) PO SCH (09:43)
[2020-09-09] MEDS: PRENATAL VITAMINS W/ FOLIC ACID TABLET (FP) PO SCH (09:43)
[2020-09-09] MEDS: LISINOPRIL 20 MG TABLET PO SCH (09:43)
[2020-09-09] MEDS: BACITRACIN 0.9 GM PACKET TP SCH (09:44)
[2020-09-09] MEDS: ASPIRIN 81 MG CHEWABLE TABLETS PO SCH (09:44)
[2020-09-09] MEDS: CLOPIDOGREL BISULFATE 75 MG TABLET (FP) PO SCH (09:44)
[2020-09-09] MEDS: amLODIPine BESYLATE 10 MG TABLET (FP) PO SCH (09:44)
[2020-09-09] MEDS: ISOSORBIDE MONONITRATE 30 MG TAB.SR.24H (FP) PO SCH (09:45)
[2020-09-09] MEDS: COLCHICINE 0.6 MG TAB PO SCH (09:45)
[2020-09-09] MEDS: NICOTINE 7 MG/24 HOURS TOPICAL PATCH TD SCH (09:46)
== END 2020-09-09 09:55 | disposition home or self-care (01) | DRG 772 ==
LOC: YASAS 15:05 → Y5N 15:07
PROVIDERS: ADMIT Allergy & Immunology; ATTEND Allergy & Immunology
PROC: HZ42ZZZ Group Counseling for Substance Abuse Treatment, Cognitive-Behavioral (ICD-10-PCS; principal; 2020-08-28)
DX: F10.20 Alcohol dependence, uncomplicated (principal); F14.20 Cocaine dependence, uncomplicated; F17.210 Nicotine dependence, cigarettes, uncomplicated; F32.9 Major depressive disorder, single episode, unspecified; G62.9 Polyneuropathy, unspecified; E11.9 Type 2 diabetes mellitus without complications; Z79.84 Long term (current) use of oral hypoglycemic drugs; I25.10 Atherosclerotic heart disease of native coronary artery without angina pectoris; I10 Essential (primary) hypertension; G40.909 Epilepsy, unspecified, not intractable, without status epilepticus; M10.9 Gout, unspecified; Z79.02 Long term (current) use of antithrombotics/antiplatelets; Z87.820 Personal history of traumatic brain injury; Z98.890 Other specified postprocedural states; Z99.89 Dependence on other enabling machines and devices; Z88.5 Allergy status to narcotic agent
CPT/HCPCS: 82962; C9803; U0003

== ENCOUNTER 2020-10-10 20:06 | Inpatient (IN) | payer OTHER ==
[2020-10-10 20:43] VITALS: BMI 33.0
[2020-10-10] MEDS ORDERED: MAGNESIUM CITRATE 300 ML BOTTLE PO PRN (21:18)
[2020-10-10] MEDS ORDERED: MELATONIN 5 MG TABLETS PO PRN (21:18)
[2020-10-10] MEDS ORDERED: ONDANSETRON *ODT* 4 MG TABLET SL PRN (21:18)
[2020-10-10] MEDS ORDERED: MENTHOL/PHENOL 1 EACH UD MM PRN (21:18)
[2020-10-10] MEDS ORDERED: MAG HYDROX/AL HYDROX/SIMETH 30 ML UNIT-DOSE CUP PO PRN (21:18)
[2020-10-10] MEDS ORDERED: MAGNESIUM HYDROX 2400MG/30ML ORAL SUSPENSION 30 ML CUP PO PRN (21:18)
[2020-10-10] MEDS ORDERED: ACETAMINOPHEN 325 MG TABLET (FP) PO PRN ×2 (21:18)
[2020-10-10] MEDS ORDERED: chlordiazePOXIDE HCL 25 MG CAPSULE PO PRN (21:20)
[2020-10-10] MEDS: GABAPENTIN 300 MG CAPSULE PO SCH (22:47)
[2020-10-10] MEDS: CLOPIDOGREL BISULFATE 75 MG TABLET (FP) PO SCH (22:47)
[2020-10-10] MEDS: levETIRAcetam 500 MG TABLET (FP) PO SCH (22:47)
[2020-10-10] MEDS: amLODIPine BESYLATE 5 MG TABLET (FP) PO SCH (22:47)
[2020-10-10] MEDS: ATORVASTATIN CA 40 MG TABLET (FP) PO SCH (22:47)
[2020-10-10] MEDS: chlordiazePOXIDE HCL 25 MG CAPSULE PO SCH (22:48)
[2020-10-10] MEDS: THIAMINE HCL 100 MG TABLET (FP) PO SCH (22:52)
[2020-10-10] MEDS: BACITRACIN 15 GM TUBE TOPICAL OINTMENT TP SCH (23:15)
[2020-10-11] MEDS: hydrALAZINE HCL 10 MG TABLET PO SCH ×4 (00:57→22:17)
[2020-10-11] MEDS: chlordiazePOXIDE HCL 25 MG CAPSULE PO SCH ×4 (06:31→22:17)
[2020-10-11] MEDS: GABAPENTIN 300 MG CAPSULE PO SCH ×3 (06:31→22:17)
[2020-10-11 09:25] LABS: HEMATOCRIT 37.8 % (35.4-49); HEMOGLOBIN 12.9 GM/dL (11.7-16.9); MCH 28.8 pg (25.7-33.7); MCHC 34.1 g/dl (32.0-35.9); MEAN CELL VOLUME 84.6 fl (80-96); MEAN PLT VOLUME 8.2 fl (7.5-11.1); PLATELET COUNT 119 K/MM3 (134-434); RBC 4.46 M/mm3 (4.00-5.60); RDW 14.6 % (11.9-15.9)
[2020-10-11 09:26] LABS: POTASSIUM 3.1 mmol/L (3.5-5.1)
[2020-10-11 09:28] LABS: ALBUMIN 3.3 g/dl (3.4-5.0); BLOOD UREA NITROGEN 7.7 mg/dL (7-18); CALCIUM 8.3 mg/dL (8.5-10.1)
[2020-10-11 09:31] LABS: CREATININE 0.8 mg/dL (0.55-1.3)
[2020-10-11 09:33] LABS: TOT PROT 6.9 g/dl (6.4-8.2)
[2020-10-11] MEDS: BACITRACIN 15 GM TUBE TOPICAL OINTMENT TP SCH ×2 (10:51→22:18)
[2020-10-11] MEDS: levETIRAcetam 500 MG TABLET (FP) PO SCH ×2 (10:51→22:17)
[2020-10-11] MEDS: ISOSORBIDE MONONITRATE 30 MG TAB.SR.24H (FP) PO SCH (10:51)
[2020-10-11] MEDS: PRENATAL VITAMINS W/ FOLIC ACID TABLET (FP) PO SCH (10:52)
[2020-10-11] MEDS: amLODIPine BESYLATE 5 MG TABLET (FP) PO SCH (10:52)
[2020-10-11] MEDS: CLOPIDOGREL BISULFATE 75 MG TABLET (FP) PO SCH (10:52)
[2020-10-11] MEDS ORDERED: FLU VACCINE (FLULAVAL) PF 60 MCG/0.5 ML SYRINGE 2020-2021 IM ONE (12:00)
[2020-10-11] MEDS ORDERED: cloNIDine HCL 0.1 MG TABLET PO PRN (14:20)
[2020-10-11] MEDS ORDERED: POTASSIUM CHLORIDE ORAL LIQUID 20 MEQ/15 ML PO ONE ×2 (15:00→19:00)
[2020-10-11] MEDS: SUVOREXANT 10 MG TABLET PO PRN (22:16)
[2020-10-11] MEDS: THIAMINE HCL 100 MG TABLET (FP) PO SCH (22:17)
[2020-10-11] MEDS: ATORVASTATIN CA 40 MG TABLET (FP) PO SCH (22:17)
[2020-10-12] MEDS: GABAPENTIN 300 MG CAPSULE PO SCH ×3 (06:18→22:04)
[2020-10-12] MEDS: hydrALAZINE HCL 10 MG TABLET PO SCH ×3 (06:18→22:04)
[2020-10-12] MEDS: chlordiazePOXIDE HCL 25 MG CAPSULE PO SCH ×4 (06:19→22:04)
[2020-10-12] MEDS: BACITRACIN 15 GM TUBE TOPICAL OINTMENT TP SCH ×2 (10:13→23:02)
[2020-10-12] MEDS: levETIRAcetam 500 MG TABLET (FP) PO SCH ×2 (10:14→22:04)
[2020-10-12] MEDS: CLOPIDOGREL BISULFATE 75 MG TABLET (FP) PO SCH (10:15)
[2020-10-12] MEDS: PRENATAL VITAMINS W/ FOLIC ACID TABLET (FP) PO SCH (10:15)
[2020-10-12] MEDS: amLODIPine BESYLATE 5 MG TABLET (FP) PO SCH (10:15)
[2020-10-12] MEDS: ISOSORBIDE MONONITRATE 30 MG TAB.SR.24H (FP) PO SCH (13:30)
[2020-10-12] MEDS: THIAMINE HCL 100 MG TABLET (FP) PO SCH (22:04)
[2020-10-12] MEDS: ATORVASTATIN CA 40 MG TABLET (FP) PO SCH (22:04)
[2020-10-12] MEDS: SUVOREXANT 10 MG TABLET PO PRN (22:05)
[2020-10-13] MEDS ORDERED: chlordiazePOXIDE HCL 10 MG CAPSULE PO PRN
[2020-10-13] MEDS: chlordiazePOXIDE HCL 10 MG CAPSULE PO SCH ×4 (05:16→22:30)
[2020-10-13] MEDS: hydrALAZINE HCL 10 MG TABLET PO SCH ×3 (05:16→22:30)
[2020-10-13] MEDS: GABAPENTIN 300 MG CAPSULE PO SCH ×3 (05:16→22:29)
[2020-10-13] MEDS ORDERED: BACITRACIN 0.9 GM PACKET ONE (09:32)
[2020-10-13] MEDS: PRENATAL VITAMINS W/ FOLIC ACID TABLET (FP) PO SCH (11:05)
[2020-10-13] MEDS: ISOSORBIDE MONONITRATE 30 MG TAB.SR.24H (FP) PO SCH (11:06)
[2020-10-13] MEDS: levETIRAcetam 500 MG TABLET (FP) PO SCH ×2 (11:06→22:29)
[2020-10-13] MEDS: amLODIPine BESYLATE 5 MG TABLET (FP) PO SCH (11:06)
[2020-10-13] MEDS: CLOPIDOGREL BISULFATE 75 MG TABLET (FP) PO SCH (11:07)
[2020-10-13] MEDS: BACITRACIN 15 GM TUBE TOPICAL OINTMENT TP SCH ×2 (11:07→22:33)
[2020-10-13] MEDS: THIAMINE HCL 100 MG TABLET (FP) PO SCH (22:29)
[2020-10-13] MEDS: ATORVASTATIN CA 40 MG TABLET (FP) PO SCH (22:29)
[2020-10-13] MEDS: SUVOREXANT 10 MG TABLET PO PRN (22:30)
[2020-10-14] MEDS: chlordiazePOXIDE HCL 10 MG CAPSULE PO SCH ×2 (05:49→17:38)
[2020-10-14] MEDS: hydrALAZINE HCL 10 MG TABLET PO SCH ×3 (05:49→22:31)
[2020-10-14] MEDS: GABAPENTIN 300 MG CAPSULE PO SCH ×3 (05:49→22:31)
[2020-10-14] MEDS: CLOPIDOGREL BISULFATE 75 MG TABLET (FP) PO SCH (10:15)
[2020-10-14] MEDS: BACITRACIN 15 GM TUBE TOPICAL OINTMENT TP SCH ×2 (10:16→22:32)
[2020-10-14] MEDS: amLODIPine BESYLATE 5 MG TABLET (FP) PO SCH (10:16)
[2020-10-14] MEDS: ISOSORBIDE MONONITRATE 30 MG TAB.SR.24H (FP) PO SCH (10:16)
[2020-10-14] MEDS: levETIRAcetam 500 MG TABLET (FP) PO SCH ×2 (10:16→22:32)
[2020-10-14] MEDS: PRENATAL VITAMINS W/ FOLIC ACID TABLET (FP) PO SCH (10:17)
[2020-10-14] MEDS: ATORVASTATIN CA 40 MG TABLET (FP) PO SCH (22:32)
[2020-10-14] MEDS: THIAMINE HCL 100 MG TABLET (FP) PO SCH (22:32)
[2020-10-15] MEDS ORDERED: chlordiazePOXIDE HCL 10 MG CAPSULE PO ONE (05:00)
[2020-10-15] MEDS: hydrALAZINE HCL 10 MG TABLET PO SCH (05:48)
[2020-10-15] MEDS: GABAPENTIN 300 MG CAPSULE PO SCH (05:48)
[2020-10-15 09:48] VITALS: BP 128/80; PULSE 91; TEMP 98
== END 2020-10-15 09:29 | disposition home or self-care (01) | DRG 774 ==
LOC: YASAS 20:06 → Y6N 21:05 → UNDODISIN 10-11 10:25 → Y6N 10-12 17:34
PROVIDERS: ADMIT Allergy & Immunology; ATTEND Allergy & Immunology
PROC: HZ2ZZZZ Detoxification Services for Substance Abuse Treatment (ICD-10-PCS; principal; 2020-10-10)
DX: F10.230 Alcohol dependence with withdrawal, uncomplicated (principal); F14.20 Cocaine dependence, uncomplicated; F12.20 Cannabis dependence, uncomplicated; F17.210 Nicotine dependence, cigarettes, uncomplicated; F10.282 Alcohol dependence with alcohol-induced sleep disorder; F10.280 Alcohol dependence with alcohol-induced anxiety disorder; F10.24 Alcohol dependence with alcohol-induced mood disorder; F41.8 Other specified anxiety disorders; F32.9 Major depressive disorder, single episode, unspecified; G62.9 Polyneuropathy, unspecified; E78.5 Hyperlipidemia, unspecified; G40.909 Epilepsy, unspecified, not intractable, without status epilepticus; I25.10 Atherosclerotic heart disease of native coronary artery without angina pectoris; I10 Essential (primary) hypertension; Z95.5 Presence of coronary angioplasty implant and graft; M10.9 Gout, unspecified; E11.9 Type 2 diabetes mellitus without complications; Z62.810 Personal history of physical and sexual abuse in childhood; Z87.820 Personal history of traumatic brain injury; Z98.890 Other specified postprocedural states; Z79.02 Long term (current) use of antithrombotics/antiplatelets; Z99.89 Dependence on other enabling machines and devices; Z88.5 Allergy status to narcotic agent; Z56.0 Unemployment, unspecified; Z59.0 Homelessness
CPT/HCPCS: 36415; 80053; 82962; 84132; 85027; 86780; C9803; U0003; U0005

== ENCOUNTER 2020-11-11 20:40 | Inpatient (IN) | payer OTHER ==
[2020-11-11 21:05] VITALS: BMI 33.7
[2020-11-11 22:00] LABS: BASO % 1.3 % (0-2.0); EOS % 2.1 % (0-4.5); HEMATOCRIT 38.4 % (35.4-49); LYMPH % 43.2 % (8-40); MCH 28.8 pg (25.7-33.7); MCHC 33.8 g/dl (32.0-35.9); MEAN CELL VOLUME 85.1 fl (80-96); MEAN PLT VOLUME 7.6 fl (7.5-11.1); MONO % 7.8 % (3.8-10.2); NEUT % 45.6 % (42.8-82.8); PLATELET COUNT 155 K/MM3 (134-434); RBC 4.51 M/mm3 (4.00-5.60); WHITE BLOOD COUNT 4.2 K/mm3 (4.0-10.0)
[2020-11-11 22:11] LABS: INR 1.06 (0.83-1.09); PROTHROMBIN TIME (PATIENT) 12.8 SEC (9.7-13.0)
[2020-11-11 22:14] LABS: ACTIVATED PTT 26.6 SECONDS (25.2-36.5)
[2020-11-11 22:20] LABS: CHLORIDE 110 mmol/L (98-107); SODIUM 144 mmol/L (136-145)
[2020-11-11] MEDS ORDERED: ASPIRIN COATED 81 MG TABLET.EC PO ONE (22:21)
[2020-11-11 22:22] LABS: ALBUMIN 3.6 g/dl (3.4-5.0); ANION GAP 9 MMOL/L (8-16); CO2 24 mmol/L (21-32); GLUCOSE,RANDOM 104 mg/dL (74-106)
[2020-11-11 22:23] LABS: BLOOD UREA NITROGEN 8.1 mg/dL (7-18)
[2020-11-11 22:26] LABS: SGOT/AST 33 U/L (15-37); SGPT/ALT 29 U/L (13-61)
[2020-11-11 22:27] LABS: BILIRUBIN,TOTAL 0.4 mg/dL (0.2-1); TOT PROT 7.6 g/dl (6.4-8.2)
[2020-11-11 22:28] LABS: ALK PHOS 83 U/L (45-117)
[2020-11-11] MEDS ORDERED: POTASSIUM CHLORIDE ORAL LIQUID 20 MEQ/15 ML PO ONE (22:33)
[2020-11-11] MEDS ORDERED: ASPIRIN COATED 81 MG TABLET.EC ONE (22:59)
[2020-11-11] MEDS ORDERED: POTASSIUM CHLORIDE ORAL LIQUID 20 MEQ/15 ML ONE (23:00)
[2020-11-11] MEDS ORDERED: ACETAMINOPHEN 325 MG TABLET (FP) PO PRN (23:56)
[2020-11-12] MEDS ORDERED: chlordiazePOXIDE HCL 25 MG CAPSULE PO PRN (00:05)
[2020-11-12] MEDS ORDERED: IBUPROFEN 400 MG TABLET (FP) PO PRN (00:05)
[2020-11-12 00:14] LABS: MAGNESIUM 1.7 mg/dL (1.8-2.4)
[2020-11-12] MEDS ORDERED: MAGNESIUM SULF 50% (8.12 MEQ/2 ML-1 GM VIAL) IVPB ONE (00:48)
[2020-11-12] MEDS ORDERED: FOLIC ACID INJECTION - 1 MG, THIAMINE HCL 100 MG, MULTIVIT INJECTION ADULT 10 ML in SOD... IVPB ONE (01:00)
[2020-11-12] MEDS: chlordiazePOXIDE HCL 25 MG CAPSULE PO SCH ×4 (05:36→22:16)
[2020-11-12] MEDS: INSULIN SLIDING SCALE (NOVOLOG) 1 VIAL SQ SCH ×4 (06:53→22:20)
[2020-11-12] MEDS ORDERED: POTASSIUM CHLORIDE ORAL LIQUID 20 MEQ/15 ML PO ONE (08:03)
[2020-11-12 08:08] LABS: EOS % 2.9 % (0-4.5); HEMATOCRIT 36.5 % (35.4-49); HEMOGLOBIN 12.5 GM/dL (11.7-16.9); LYMPH % 35.2 % (8-40); MCHC 34.2 g/dl (32.0-35.9); MEAN CELL VOLUME 84.9 fl (80-96); MEAN PLT VOLUME 7.9 fl (7.5-11.1); MONO % 10.7 % (3.8-10.2); NEUT % 50.2 % (42.8-82.8); PLATELET COUNT 122 K/MM3 (134-434); RDW 15.4 % (11.9-15.9); WHITE BLOOD COUNT 3.2 K/mm3 (4.0-10.0)
[2020-11-12 08:30] LABS: ALBUMIN 3.2 g/dl (3.4-5.0); MAGNESIUM 1.9 mg/dL (1.8-2.4)
[2020-11-12 08:31] LABS: BLOOD UREA NITROGEN 8.8 mg/dL (7-18); CALCIUM 7.4 mg/dL (8.5-10.1)
[2020-11-12 08:33] LABS: CREATININE 0.8 mg/dL (0.55-1.3)
[2020-11-12 08:34] LABS: PHOSPHOROUS 2.3 mg/dL (2.5-4.9)
[2020-11-12 08:36] LABS: BILIRUBIN,TOTAL 0.7 mg/dL (0.2-1)
[2020-11-12 08:37] LABS: TOT PROT 6.7 g/dl (6.4-8.2)
[2020-11-12] MEDS ORDERED: NAPH,MB-DB/K PH,MBDB POWDER PACKET PO ONE (08:57)
[2020-11-12] MEDS ORDERED: PNEUMOCOCCAL 23 VACCINE 0.5 ML VIAL IM ONE (10:00)
[2020-11-12] MEDS ORDERED: PNEUMOC 13-VAL CONJ-DIP CRM/PF 0.5 ML DISP.SYRIN IM ONE (10:00)
[2020-11-12] MEDS ORDERED: ENOXAPARIN NA (PORCINE) 40 MG/0.4 ML DISP.SYRIN SQ SCH (10:00)
[2020-11-12] MEDS: FOLIC ACID 1 MG TABLET (FP) PO SCH (10:01)
[2020-11-12] MEDS: amLODIPine BESYLATE 5 MG TABLET (FP) PO SCH (10:01)
[2020-11-12] MEDS: CLOPIDOGREL BISULFATE 75 MG TABLET (FP) PO SCH (10:01)
[2020-11-12] MEDS: LISINOPRIL 20 MG TABLET PO SCH (10:01)
[2020-11-12] MEDS: MULTIVITAMINS (DAILY MVI) TABLET (FP) PO SCH (10:01)
[2020-11-12] MEDS: levETIRAcetam 500 MG TABLET (FP) PO SCH ×2 (10:01→22:17)
[2020-11-12] MEDS: THIAMINE HCL 100 MG TABLET (FP) PO SCH (10:01)
[2020-11-12] MEDS: LIDOCAINE 5% TOPICAL PATCH TP SCH (10:02)
[2020-11-12] MEDS ORDERED: KCL 10 MEQ IVPB 10 MEQ/100 ML INFUS.BAG IVPB SCH (16:15)
[2020-11-12] MEDS ORDERED: PT OWN MED DRAWER 7, Y5N ONE (16:54)
[2020-11-12] MEDS ORDERED: APIXABAN 5 MG TABLET PO SCH (22:00)
[2020-11-12] MEDS: ATORVASTATIN CA 40 MG TABLET (FP) PO SCH (22:17)
[2020-11-12] MEDS: LIDOCAINE PATCH REMOVAL MC SCH (22:17)
[2020-11-12] MEDS: GABAPENTIN 300 MG CAPSULE PO SCH (22:17)
[2020-11-13] MEDS: GABAPENTIN 300 MG CAPSULE PO SCH ×3 (05:58→21:52)
[2020-11-13] MEDS: chlordiazePOXIDE HCL 25 MG CAPSULE PO SCH ×5 (05:58→23:03)
[2020-11-13] MEDS: INSULIN SLIDING SCALE (NOVOLOG) 1 VIAL SQ SCH ×4 (06:00→21:55)
[2020-11-13 08:09] LABS: HEMOGLOBIN 13.2 GM/dL (11.7-16.9); MCH 29.3 pg (25.7-33.7); MCHC 34.8 g/dl (32.0-35.9); MEAN CELL VOLUME 84.2 fl (80-96); MEAN PLT VOLUME 8.2 fl (7.5-11.1); PLATELET COUNT 116 K/MM3 (134-434); RBC 4.51 M/mm3 (4.00-5.60); RDW 15.6 % (11.9-15.9); WHITE BLOOD COUNT 4.4 K/mm3 (4.0-10.0)
[2020-11-13 08:19] LABS: ALBUMIN 3.1 g/dl (3.4-5.0)
[2020-11-13 08:20] LABS: BLOOD UREA NITROGEN 6.7 mg/dL (7-18)
[2020-11-13 08:23] LABS: CREATININE 0.9 mg/dL (0.55-1.3)
[2020-11-13 08:24] LABS: TOT PROT 6.9 g/dl (6.4-8.2)
[2020-11-13] MEDS ORDERED: REGADENOSON 0.4 MG/5 ML PRE-FILLED SYRINGE IVPUSH ONE ×2 (10:15→11:27)
[2020-11-13] MEDS: CLOPIDOGREL BISULFATE 75 MG TABLET (FP) PO SCH ×2 (10:40→13:52)
[2020-11-13] MEDS: ASPIRIN 81 MG CHEWABLE TABLETS PO SCH ×2 (10:40→13:52)
[2020-11-13] MEDS: LISINOPRIL 20 MG TABLET PO SCH ×2 (10:40→13:50)
[2020-11-13] MEDS: amLODIPine BESYLATE 5 MG TABLET (FP) PO SCH ×2 (10:40→13:52)
[2020-11-13] MEDS: THIAMINE HCL 100 MG TABLET (FP) PO SCH ×2 (10:40→13:52)
[2020-11-13] MEDS: MULTIVITAMINS (DAILY MVI) TABLET (FP) PO SCH ×2 (10:40→13:49)
[2020-11-13] MEDS: levETIRAcetam 500 MG TABLET (FP) PO SCH ×3 (10:40→21:51)
[2020-11-13] MEDS: FOLIC ACID 1 MG TABLET (FP) PO SCH ×2 (10:40→13:50)
[2020-11-13] MEDS: LIDOCAINE 5% TOPICAL PATCH TP SCH (11:40)
[2020-11-13] MEDS ORDERED: POTASSIUM CHLORIDE ORAL LIQUID 20 MEQ/15 ML PO ONE (12:22)
[2020-11-13] MEDS: ATORVASTATIN CA 40 MG TABLET (FP) PO SCH (21:51)
[2020-11-13] MEDS: LIDOCAINE PATCH REMOVAL MC SCH (21:55)
[2020-11-14] MEDS ORDERED: chlordiazePOXIDE HCL 10 MG CAPSULE PO PRN
[2020-11-14] MEDS: GABAPENTIN 300 MG CAPSULE PO SCH ×3 (05:44→22:08)
[2020-11-14] MEDS: chlordiazePOXIDE HCL 10 MG CAPSULE PO SCH ×4 (05:44→22:07)
[2020-11-14] MEDS: INSULIN SLIDING SCALE (NOVOLOG) 1 VIAL SQ SCH ×4 (06:23→22:08)
[2020-11-14 08:04] LABS: HEMATOCRIT 37.3 % (35.4-49); HEMOGLOBIN 12.8 GM/dL (11.7-16.9); MCH 29.2 pg (25.7-33.7); MCHC 34.3 g/dl (32.0-35.9); MEAN CELL VOLUME 85.1 fl (80-96); MEAN PLT VOLUME 8.1 fl (7.5-11.1); PLATELET COUNT 117 K/MM3 (134-434); RBC 4.38 M/mm3 (4.00-5.60); RDW 15.9 % (11.9-15.9); WHITE BLOOD COUNT 5.8 K/mm3 (4.0-10.0)
[2020-11-14 08:25] LABS: ALBUMIN 3.2 g/dl (3.4-5.0)
[2020-11-14 08:26] LABS: BLOOD UREA NITROGEN 12.5 mg/dL (7-18)
[2020-11-14 08:28] LABS: CREATININE 0.8 mg/dL (0.55-1.3)
[2020-11-14 08:30] LABS: BILIRUBIN,TOTAL 0.5 mg/dL (0.2-1); TOT PROT 6.5 g/dl (6.4-8.2)
[2020-11-14] MEDS: FOLIC ACID 1 MG TABLET (FP) PO SCH (10:55)
[2020-11-14] MEDS: MULTIVITAMINS (DAILY MVI) TABLET (FP) PO SCH (10:55)
[2020-11-14] MEDS: THIAMINE HCL 100 MG TABLET (FP) PO SCH (10:55)
[2020-11-14] MEDS: ASPIRIN 81 MG CHEWABLE TABLETS PO SCH (10:55)
[2020-11-14] MEDS: CLOPIDOGREL BISULFATE 75 MG TABLET (FP) PO SCH (10:55)
[2020-11-14] MEDS: LISINOPRIL 20 MG TABLET PO SCH (10:55)
[2020-11-14] MEDS: levETIRAcetam 500 MG TABLET (FP) PO SCH ×2 (10:55→22:08)
[2020-11-14] MEDS: amLODIPine BESYLATE 5 MG TABLET (FP) PO SCH (10:56)
[2020-11-14] MEDS: POTASSIUM CHLORIDE TABS 20 MEQ TABLET.ER (FP) PO SCH ×2 (10:56→22:08)
[2020-11-14] MEDS: LIDOCAINE 5% TOPICAL PATCH TP SCH (10:56)
[2020-11-14] MEDS: APIXABAN 5 MG TABLET PO SCH (22:08)
[2020-11-14] MEDS: ATORVASTATIN CA 40 MG TABLET (FP) PO SCH (22:08)
[2020-11-14] MEDS: LIDOCAINE PATCH REMOVAL MC SCH (22:11)
[2020-11-15] MEDS: GABAPENTIN 300 MG CAPSULE PO SCH ×3 (06:25→21:17)
[2020-11-15] MEDS: chlordiazePOXIDE HCL 10 MG CAPSULE PO SCH ×2 (06:25→18:20)
[2020-11-15] MEDS: INSULIN SLIDING SCALE (NOVOLOG) 1 VIAL SQ SCH ×4 (06:28→21:19)
[2020-11-15] MEDS: levETIRAcetam 500 MG TABLET (FP) PO SCH ×2 (11:00→21:17)
[2020-11-15] MEDS: LIDOCAINE 5% TOPICAL PATCH TP SCH (12:31)
[2020-11-15] MEDS: ASPIRIN 81 MG CHEWABLE TABLETS PO SCH (12:32)
[2020-11-15] MEDS: FOLIC ACID 1 MG TABLET (FP) PO SCH (12:32)
[2020-11-15] MEDS: APIXABAN 5 MG TABLET PO SCH (12:32)
[2020-11-15] MEDS: CLOPIDOGREL BISULFATE 75 MG TABLET (FP) PO SCH (12:33)
[2020-11-15] MEDS: amLODIPine BESYLATE 5 MG TABLET (FP) PO SCH (12:33)
[2020-11-15] MEDS: LISINOPRIL 20 MG TABLET PO SCH (12:33)
[2020-11-15] MEDS: POTASSIUM CHLORIDE TABS 20 MEQ TABLET.ER (FP) PO SCH (12:33)
[2020-11-15] MEDS: THIAMINE HCL 100 MG TABLET (FP) PO SCH (12:33)
[2020-11-15] MEDS: MULTIVITAMINS (DAILY MVI) TABLET (FP) PO SCH (12:33)
[2020-11-15] MEDS: ATORVASTATIN CA 40 MG TABLET (FP) PO SCH (21:17)
[2020-11-15] MEDS: LIDOCAINE PATCH REMOVAL MC SCH (21:19)
[2020-11-16] MEDS ORDERED: chlordiazePOXIDE HCL 10 MG CAPSULE PO ONE (05:00)
[2020-11-16] MEDS: GABAPENTIN 300 MG CAPSULE PO SCH ×2 (05:42→13:05)
[2020-11-16] MEDS: INSULIN SLIDING SCALE (NOVOLOG) 1 VIAL SQ SCH ×2 (06:07→12:21)
[2020-11-16 08:27] LABS: ALBUMIN 3.3 g/dl (3.4-5.0); BLOOD UREA NITROGEN 10.6 mg/dL (7-18); CALCIUM 8.2 mg/dL (8.5-10.1)
[2020-11-16 08:30] LABS: CREATININE 0.9 mg/dL (0.55-1.3)
[2020-11-16 08:32] LABS: BILIRUBIN,TOTAL 0.4 mg/dL (0.2-1); TOT PROT 6.7 g/dl (6.4-8.2)
[2020-11-16 09:28] LABS: HEMOGLOBIN 12.7 GM/dL (11.7-16.9); MCH 29.4 pg (25.7-33.7); MCHC 34.4 g/dl (32.0-35.9); MEAN CELL VOLUME 85.5 fl (80-96); MEAN PLT VOLUME 8.7 fl (7.5-11.1); PLATELET COUNT 118 K/MM3 (134-434); RBC 4.33 M/mm3 (4.00-5.60); RDW 15.9 % (11.9-15.9); WHITE BLOOD COUNT 6.1 K/mm3 (4.0-10.0)
[2020-11-16] MEDS: ASPIRIN 81 MG CHEWABLE TABLETS PO SCH (09:33)
[2020-11-16] MEDS: FOLIC ACID 1 MG TABLET (FP) PO SCH (09:33)
[2020-11-16] MEDS: levETIRAcetam 500 MG TABLET (FP) PO SCH (09:33)
[2020-11-16] MEDS: LIDOCAINE 5% TOPICAL PATCH TP SCH (09:33)
[2020-11-16] MEDS: LISINOPRIL 20 MG TABLET PO SCH (09:34)
[2020-11-16] MEDS: THIAMINE HCL 100 MG TABLET (FP) PO SCH (09:34)
[2020-11-16] MEDS: amLODIPine BESYLATE 5 MG TABLET (FP) PO SCH (09:34)
[2020-11-16] MEDS: CLOPIDOGREL BISULFATE 75 MG TABLET (FP) PO SCH (09:34)
[2020-11-16] MEDS: MULTIVITAMINS (DAILY MVI) TABLET (FP) PO SCH (09:34)
[2020-11-16 09:45] VITALS: BP 130/96; PULSE 83; TEMP 98
== END 2020-11-16 13:48 | disposition home or self-care (01) | DRG 775 ==
LOC: JER 20:40 → JERBED 22:41 → J4W 11-12 01:54 → OBSVTOIN 11-14 16:19
PROVIDERS: ADMIT Hospitalist; ATTEND Internal Medicine
DX: F10.230 Alcohol dependence with withdrawal, uncomplicated (principal); R56.9 Unspecified convulsions; R07.89 Other chest pain; I25.10 Atherosclerotic heart disease of native coronary artery without angina pectoris; F10.220 Alcohol dependence with intoxication, uncomplicated; I10 Essential (primary) hypertension; E78.5 Hyperlipidemia, unspecified; R73.03 Prediabetes; Z86.711 Personal history of pulmonary embolism; G62.9 Polyneuropathy, unspecified; Z91.14 Patient's other noncompliance with medication regimen
CPT/HCPCS: 36415; 71045-TC-FY; 71275-TC; 78452-TC; 80053; 80061; 82550; 82553; 82962; 83036; 83721; 83735; 84100; 84484; 85025; 85027; 85610; 85730; 90732; 93005; 93010; 93017; 93306-TC; 99285-25; A9502; C9803; G0009; G0378; J2785; Q9967; U0003; U0005

== ENCOUNTER 2021-09-01 13:11 | Inpatient (IN) | payer OTHER ==
[2021-09-01] MEDS ORDERED: NICOTINE 10 MG CARTRIDGE (INHALER) IH PRN (13:51)
[2021-09-01] MEDS ORDERED: IBUPROFEN 400 MG TABLET (FP) PO PRN (13:51)
[2021-09-01] MEDS ORDERED: BISMUTH SUBSALICYLATE 524 MG/30 ML PO PRN (13:51)
[2021-09-01] MEDS ORDERED: METHOCARBAMOL 500 MG TABLET PO PRN (13:51)
[2021-09-01] MEDS ORDERED: chlordiazePOXIDE HCL 25 MG CAPSULE PO PRN (13:51)
[2021-09-01] MEDS ORDERED: MAG HYDROX/AL HYDROX/SIMETH 30 ML UNIT-DOSE CUP PO PRN (13:51)
[2021-09-01] MEDS ORDERED: LOPERAMIDE HCL 2 MG CAPSULE PO PRN (13:51)
[2021-09-01] MEDS ORDERED: ONDANSETRON *ODT* 4 MG TABLET SL PRN (13:51)
[2021-09-01] MEDS ORDERED: MENTHOL/PHENOL 1 EACH UD MM PRN (13:51)
[2021-09-01] MEDS ORDERED: MAGNESIUM CITRATE 300 ML BOTTLE PO PRN (13:51)
[2021-09-01] MEDS ORDERED: ACETAMINOPHEN 325 MG TABLET (FP) PO PRN ×2 (13:51)
[2021-09-01] MEDS ORDERED: MAGNESIUM HYDROX 2400MG/30ML ORAL SUSPENSION 30 ML CUP PO PRN (13:51)
[2021-09-01 15:07] VITALS: BMI 29.2
[2021-09-01] MEDS ORDERED: chlordiazePOXIDE HCL 25 MG CAPSULE ONE (16:05)
[2021-09-01] MEDS ORDERED: hydrOXYzine PAMOATE 25 MG CAPSULE (FP) PO ONE (16:05)
[2021-09-01] MEDS: chlordiazePOXIDE HCL 25 MG CAPSULE PO SCH ×2 (16:08→22:48)
[2021-09-01] MEDS: hydrOXYzine PAMOATE 25 MG CAPSULE (FP) PO SCH ×3 (16:08→22:52)
[2021-09-01] MEDS: PRENATAL VITAMINS W/ FOLIC ACID TABLET (FP) PO SCH (18:51)
[2021-09-01] MEDS: hydrALAZINE HCL 10 MG TABLET PO SCH ×2 (18:51→22:51)
[2021-09-01] MEDS: FAMOTIDINE 20 MG TABLET PO SCH (22:51)
[2021-09-01] MEDS: MELATONIN 5 MG TABLETS PO SCH (22:51)
[2021-09-01] MEDS: ATORVASTATIN CA 40 MG TABLET (FP) PO SCH (22:51)
[2021-09-01] MEDS: levETIRAcetam 500 MG TABLET (FP) PO SCH (22:52)
[2021-09-01] MEDS: THIAMINE HCL 100 MG TABLET (FP) PO SCH (22:53)
[2021-09-02] MEDS: hydrALAZINE HCL 10 MG TABLET PO SCH ×3 (06:30→22:17)
[2021-09-02] MEDS: hydrOXYzine PAMOATE 25 MG CAPSULE (FP) PO SCH ×5 (06:30→22:13)
[2021-09-02] MEDS: chlordiazePOXIDE HCL 25 MG CAPSULE PO SCH ×4 (06:30→22:13)
[2021-09-02] MEDS ORDERED: amLODIPine BESYLATE 5 MG TABLET (FP) PO SCH (10:00)
[2021-09-02] MEDS: ISOSORBIDE MONONITRATE 30 MG TAB.SR.24H (FP) PO SCH (11:25)
[2021-09-02] MEDS: CLOPIDOGREL BISULFATE 75 MG TABLET (FP) PO SCH (11:26)
[2021-09-02] MEDS: LISINOPRIL 20 MG TABLET PO SCH (11:26)
[2021-09-02] MEDS: ASPIRIN COATED 81 MG TABLET.EC PO SCH (11:26)
[2021-09-02] MEDS: levETIRAcetam 500 MG TABLET (FP) PO SCH ×2 (11:26→22:13)
[2021-09-02] MEDS: PRENATAL VITAMINS W/ FOLIC ACID TABLET (FP) PO SCH (11:39)
[2021-09-02 14:40] LABS: HEMOGLOBIN 9.5 GM/dL (11.7-16.9); MCH 24.9 pg (25.7-33.7); MCHC 31.7 g/dl (32.0-35.9); MEAN CELL VOLUME 78.5 fl (80-96); MEAN PLT VOLUME 7.8 fl (7.5-11.1); PLATELET COUNT 104 10^3/uL (134-434); RBC 3.82 M/mm3 (4.00-5.60); RDW 19.8 % (11.9-15.9); WHITE BLOOD COUNT 3.2 K/mm3 (4.0-10.0)
[2021-09-02 14:55] LABS: BLOOD UREA NITROGEN 7.1 mg/dL (7-18)
[2021-09-02 14:58] LABS: CREATININE 0.8 mg/dL (0.55-1.3)
[2021-09-02 15:00] LABS: BILIRUBIN,TOTAL 1.4 mg/dL (0.2-1); TOT PROT 6.3 g/dl (6.4-8.2)
[2021-09-02] MEDS: FAMOTIDINE 20 MG TABLET PO SCH (22:13)
[2021-09-02] MEDS: MELATONIN 5 MG TABLETS PO SCH (22:13)
[2021-09-02] MEDS: ATORVASTATIN CA 40 MG TABLET (FP) PO SCH (22:13)
[2021-09-02] MEDS: THIAMINE HCL 100 MG TABLET (FP) PO SCH (22:13)
[2021-09-03] MEDS: chlordiazePOXIDE HCL 25 MG CAPSULE PO SCH ×2 (06:59→10:54)
[2021-09-03] MEDS: hydrOXYzine PAMOATE 25 MG CAPSULE (FP) PO SCH ×3 (07:00→15:54)
[2021-09-03] MEDS: hydrALAZINE HCL 10 MG TABLET PO SCH ×2 (07:00→15:54)
[2021-09-03] MEDS: amLODIPine BESYLATE 10 MG TABLET (FP) PO SCH ×2 (07:01→10:54)
[2021-09-03] MEDS: CLOPIDOGREL BISULFATE 75 MG TABLET (FP) PO SCH (10:54)
[2021-09-03] MEDS: LISINOPRIL 20 MG TABLET PO SCH (10:54)
[2021-09-03] MEDS: levETIRAcetam 500 MG TABLET (FP) PO SCH (10:54)
[2021-09-03] MEDS: ASPIRIN COATED 81 MG TABLET.EC PO SCH (10:54)
[2021-09-03] MEDS: PRENATAL VITAMINS W/ FOLIC ACID TABLET (FP) PO SCH (10:55)
[2021-09-03] MEDS: ISOSORBIDE MONONITRATE 30 MG TAB.SR.24H (FP) PO SCH (10:55)
[2021-09-03 13:03] VITALS: PULSE 82
[2021-09-03 16:09] LABS: SARS-CoV-2 NAA Not Detected (Not Detected)
[2021-09-03 17:17] VITALS: BP 98/53; TEMP 97.1
[2021-09-04] MEDS ORDERED: chlordiazePOXIDE HCL 10 MG CAPSULE PO PRN
[2021-09-04] MEDS ORDERED: chlordiazePOXIDE HCL 10 MG CAPSULE PO SCH (05:00)
[2021-09-05] MEDS ORDERED: chlordiazePOXIDE HCL 10 MG CAPSULE PO SCH (05:00)
[2021-09-06] MEDS ORDERED: chlordiazePOXIDE HCL 10 MG CAPSULE PO ONE (05:00)
== END 2021-09-03 17:41 | disposition left against medical advice (07) | DRG 770 ==
LOC: YASAS 13:11 → Y3N 15:22
PROVIDERS: ADMIT Allergy & Immunology; ATTEND Allergy & Immunology
PROC: HZ2ZZZZ Detoxification Services for Substance Abuse Treatment (ICD-10-PCS; principal; 2021-09-01)
DX: F10.230 Alcohol dependence with withdrawal, uncomplicated (principal); F12.20 Cannabis dependence, uncomplicated; F17.210 Nicotine dependence, cigarettes, uncomplicated; F19.280 Other psychoactive substance dependence with psychoactive substance-induced anxiety disorder; F19.24 Other psychoactive substance dependence with psychoactive substance-induced mood disorder; F32.A Depression, unspecified; G62.9 Polyneuropathy, unspecified; G40.909 Epilepsy, unspecified, not intractable, without status epilepticus; I25.10 Atherosclerotic heart disease of native coronary artery without angina pectoris; I10 Essential (primary) hypertension; Z95.5 Presence of coronary angioplasty implant and graft; R29.6 Repeated falls; Z99.89 Dependence on other enabling machines and devices; Z86.59 Personal history of other mental and behavioral disorders; Z88.5 Allergy status to narcotic agent; Z59.00 Homelessness unspecified
CPT/HCPCS: 36415; 80053; 80177; 85027; 86780; C9803; U0003; U0005

== ENCOUNTER 2021-09-04 08:13 | Emergency (ER) | payer OTHER ==
[2021-09-04 08:49] VITALS: BP 104/69; PULSE 77; TEMP 97.6; BMI 30.7
[2021-09-04] MEDS ORDERED: FOLIC ACID INJECTION - 1 MG, THIAMINE HCL 100 MG, MULTIVIT INJECTION ADULT 10 ML in SOD... IVPB ONE (10:20)
[2021-09-04 11:45] LABS: BASO % 0.5 % (0-2.0); EOS % 1.7 % (0-4.5); HEMATOCRIT 31.3 % (35.4-49); HEMOGLOBIN 10.2 GM/dL (11.7-16.9); LYMPH % 22.6 % (8-40); MCH 25.6 pg (25.7-33.7); MCHC 32.7 g/dl (32.0-35.9); MEAN CELL VOLUME 78.2 fl (80-96); MEAN PLT VOLUME 7.9 fl (7.5-11.1); NEUT % 68.2 % (42.8-82.8); PLATELET COUNT 159 10^3/uL (134-434); RBC 4.01 M/mm3 (4.00-5.60); RDW 20.4 % (11.9-15.9); WHITE BLOOD COUNT 6.2 K/mm3 (4.0-10.0)
[2021-09-04 12:11] LABS: BLOOD UREA NITROGEN 10.9 mg/dL (7-18); CALCIUM 8.5 mg/dL (8.5-10.1)
[2021-09-04 12:14] LABS: CREATININE 1.4 mg/dL (0.55-1.3)
[2021-09-04 12:15] LABS: BILIRUBIN,TOTAL 0.6 mg/dL (0.2-1); TOT PROT 7.7 g/dl (6.4-8.2)
[2021-09-04 12:17] LABS: ALBUMIN 3.6 g/dl (3.4-5.0)
== END 2021-09-04 14:00 | disposition left against medical advice (07) ==
LOC: JER 08:13
PROC: 3E033GC Introduction of Other Therapeutic Substance into Peripheral Vein, Percutaneous Approach (ICD-10-PCS; principal; 2021-09-04)
DX: R07.9 Chest pain, unspecified (principal); M79.10 Myalgia, unspecified site
CPT/HCPCS: 36415; 71046-TC-FY; 80053; 84484; 85025; 93005; 93010; 96365; 96366; 99285-25